=== PATIENT | female | born 1965 | race Caucasian/White ===

== ENCOUNTER → 2019-01-26 | Outpatient (CLI) | payer OTHER ==
[2019-01-26 11:25] VITALS: BP 137/73; PULSE 85; RESP 16; TEMP 97.5; BMI 25.0
--- NOTE | 2019-01-26 11:43 | P.GSHP ---
History of Present Illness H&P Date: 01/26/19 Chief Complaint: abnormal mamogram Patient is a 53 year old white female rey had noted some indentation in her left breast. She noted the indentation approximately a year ago but had some weight change and thought it was related to the weight change. Her last mammogram david or to this was approximately 6 years ago. [place] [id number]. This revealed a high-density spiculated lesion approximately 1.3 cm with central calcification in the inferior left breast approximately 5 cm from the nipple. An ultrasound performed on 12/26/2018 revealed a 0.9 cm hypoechoic nodule that appeared tolerated and wide in the 6 o'clock position. Ultrasound-guided core biopsy was recommended.The patient has not felt the area. No nipple discharge or changes. The patient has had some intermittent fleeting pain in her left breast for years but nothing new that is changed. She denies any pain in her right breast. She does not feel any specific lump or mass but does not examine herself regularly. Family History: maternal grandmother: breast maternal aunt: breast sister: breast 69 maternal grandfather: bladder sister: cervical cancer maternal aunt: ? type Hormonal History: menarche: 11 : 3, 3 chldren first born at 18, breast fed: yes menopause: periods stopped had an ablation about 43, still has hot flashes BCP: 3 years hormones: none Past surgical history: 1. Tubal ligation 2. Bladder suspension Medical History: none Social history: Smoke: One pack per day for 39 years Alcohol: Once or twice a week Drugs: none - Constitutional Comment: weight gain Constitutional: Reports weight gain - EENT Eyes: denies blurred vision, denies pain Ears: right: decreased hearing, deny: tinnitus Ears, nose, mouth and throat: Denies headache, Denies sore throat - Breasts Breasts: bilateral: as per HPI - Cardiovascular Cardiovascular: Reports shortness of breath, Denies chest pain - Respiratory Comment: smoker Respiratory: Denies cough, Denies 7 - Gastrointestinal Gastrointestinal: Denies abdominal pain, Denies diarrhea, Denies nausea, Denies vomiting - Genitourinary (Female) Genitourinary: Denies dysuria, Denies hematuria - Menstruation Menstruation: Reports postmenopausal - Musculoskeletal Musculoskeletal: Denies myalgias - Integumentary Integumentary: Denies pruritus, Denies rash - Neurological Neurological: Denies numbness, Denies weakness - Psychiatric Psychiatric: Denies anxiety, Denies depression - Endocrine Endocrine: Reports weight change - Hematologic/Lymphatic Comment: none - Allergic/Immunologic Allergic/Immunologic: Reports seasonal allergies Past Medical History History of Any Multi-Drug Resistant Organisms: None Reported Smoking Status: Current every day smoker Medications and Allergies Home Medications Medication Instructions Recorded Confirmed Type Cetirizine HCl/Pseudoephedrine 1 each PO DAILY PRN 01/23/19 01/26/19 History [Zyrtec-D Tablet] Allergies Allergy/AdvReac Type Severity Reaction Status Date / Time No Known Allergies Allergy Verified 01/26/19 11:20 Surgical - Exam Vital Signs Temp Pulse Resp BP Pulse Ox 97.5 F L 85 16 137/73 98 01/26/19 11:13 01/26/19 11:13 01/26/19 11:13 01/26/19 11:13 01/26/19 11:13 BMI 25.1 - General well developed, well nourished, no distress - Eyes normal ocular movement - ENT no hearing loss, no congestion - Neck no masses, trachea midline - Respiratory normal respiratory effort, clear to auscultation - Cardiovascular Rhythm: regular Heart Sounds: normal: S1, S2 - Abdomen Abdomen: soft - Integumentary normal turgor - Neurologic no disoriented, no combative - Musculoskeletal normal gait, normal posture - Psychiatric oriented to time, oriented to person, oriented to place, speech is normal, memory intact breast exam: Right breast: Multi-positional exam fibrocystic changes no dominant masses or nodules of concern Right axilla: No adenopathy of concern Left breast: With the arms elevated there is some mild skin indentation in the 6 o'clock position and multiple positional exam does not reveal any dominant masses or nodules of concern Left axilla: No adenopathy of concern bra size 36B ptosis mild Results Mammogram and ultrasound results reviewed Assessment and Plan Assessment: Impression: 1. Abnormal left breast mammogram and ultrasound 2. Skin changes with mild indentation left breast 3. Family history of breast cancer 4. Family history of cancer 5. Smoker Plan: 1. Left breast ultrasound-guided core biopsy 2. Patient is going to try to stop smoking 3. Follow-up after ultrasound-guided core biopsy Cc: Dr. Baird, Dr. Loja
== END ==
LOC: WWCWWP 10:52
PROVIDERS: ATTEND Surgery
DX: Z53.9 Procedure and treatment not carried out, unspecified reason (principal)

== ENCOUNTER → 2019-01-30 | Day surgery (SDC) | payer OTHER ==
[2019-01-30 11:33] VITALS: RESP 16; BMI 25.0
[2019-01-30 13:12] VITALS: BP 124/84; PULSE 78; TEMP 98
--- NOTE | 2019-01-30 16:32 | USB ---
EXAMINATION TYPE: US biopsy breast VAD LT, Postbiopsy MG diagnostic mammo LT wo CAD DATE OF EXAM: 01/30/2019 CLINICAL HISTORY: 53-year-old female R92.8 ABN MAMMO. TECHNIQUE: Ultrasound guided core biopsy of the left breast. COMPARISON: 12/26/2018 and 12/20/2018 FINDINGS: The procedure of ultrasound guided core biopsy was explained to the patient. Benefits, alternatives, and risks were discussed. An informed consent was then obtained. The patient was placed in supine positioning for imaging and for the procedure. The overlying skin was prepped and draped in usual sterile fashion. Lidocaine buffered with bicarbonate was used as anesthetic into the skin and subcutaneous tissue up to area of concern in the 5:00 left breast. Under ultrasound guidance, a 13-gauge vacuum-assisted mammotome biopsy gun was used to obtain 7 core samples. Following this, a coil clip was left in lesion. The patient tolerated the procedure well without any immediate complication. The patient was kept in the radiology department for short stay after the procedure and then discharged home in stable condition. Post procedure mammogram shows coil clip located within the 6:00 mammographic mass. IMPRESSION: Successful, uncomplicated ultrasound guided core biopsy of very suspicious 5:00 left breast mass, full pathology results to follow. Pathology Results: Malignant LEFT BREAST AT 5:00 POSITION, NEEDLE CORE BIOPSIES: Infiltrating moderately differentiated ductal adenocarcinoma involving all seven core fragments. See Surgical Pathology Cancer Case Summary. Recommendation Surgical consult of the left breast. SONY
== END | disposition home or self-care (01) ==
LOC: RADUSWWP 11:13
PROVIDERS: ATTEND Surgery
DX: C50.912 Malignant neoplasm of unspecified site of left female breast (principal)
CPT/HCPCS: 88305; 77065; 19083; A4648; J2001

== ENCOUNTER → 2019-02-03 | Outpatient (CLI) | payer OTHER ==
[2019-02-03 08:49] VITALS: BP 156/83; PULSE 95; RESP 20; TEMP 97.2; BMI 25.0
--- NOTE | 2019-02-03 09:27 | P.PN ---
Subjective Progress Note Date: 02/03/19 Principal diagnosis: left breast invasive ductal carcinoma Stage I A/B left breast cancer T1 N0 M0 (ER/RI [id number]) pending, G2 50 is a 53-year-old white female status post left breast ultrasound-guided core biopsy. This revealed a grade 2 invasive ductal carcinoma. The patient's radiograph was reviewed with radiology the lesion appears to be somewhat central in the breast and would be amiable to lumpectomy. The patient did not have any clinical adenopathy of concern. She has no evidence of metastatic disease. The patient does have a strong family history of cancer including a sister with breast cancer and a maternal grandmother and maternal aunt with breast cancer. She has been recommended to undergo genetic testing. The patient has no complaints related to the biopsy. Family history: Maternal grandmother: Breast cancer Maternal aunt: Breast cancer Sister: Breast cancer 69 Maternal grandfather: Bladder cancer Sister: Cervical cancer Maternal aunt colon cancer uncertain of the type Past surgical history: 1. Tubal ligation 2. Bladder suspension Medical history: Negative Social history: Smoke: One pack per day for 39 years Alcohol: Once or twice a week Drugs: Negative Review of systems: HEENT negative Lungs: Smoker Cardiovascular: Shortness of breath at times GI: Negative : Negative Musculoskeletal: Negative Psychiatric: Negative Objective - Vital Signs Vital signs: Vital Signs Temp 97.2 F L 02/03/19 08:46 Pulse 95 02/03/19 08:46 Resp 20 02/03/19 08:46 BP 156/83 02/03/19 08:46 Pulse Ox 99 02/03/19 08:46 Intake & Output 02/02/19 02/03/19 02/03/19 18:59 06:59 18:59 Weight 72.575 kg - Exam BMI 25.1 - Constitutional General appearance: Present: average body habitus - EENT Eyes: Present: EOMI ENT: Present: hearing grossly normal - Neck Neck: Present: normal ROM - Respiratory Respiratory: bilateral: CTA - Cardiovascular Rhythm: regular Heart sounds: normal: S1, S2 - Integumentary Integumentary Comment(s): Left breast: Core biopsy site mild ecchymosis no hematoma no evidence of any infection - Musculoskeletal Musculoskeletal: Present: gait normal - Psychiatric Psychiatric: Present: A&O x's 3, appropriate affect, intact judgment & insight Assessment and Plan Assessment: Impression: 1. Patient with new diagnosis of left breast cancer 2. Smoker I've had a long discussion with the patient and her family regarding her diagnosis. She has a T1 N0 M0 grade 2 stage 1A/possible IB left breast cancer. Options of lumpectomy plus radiation therapy versus mastectomy plus or minus reconstruction with sentinel node biopsy plus or minus axillary node dissection were discussed in detail. The patient and her family understand. The patient at this time is going to meet with radiation oncology as well as have blood drawn for genetic testing. She will be seen back here in approximately 3 weeks. Plan: 1. Meet with radiation oncology 2. Genetic testing 3. Patient's case to be presented at tumor board 4. Meet with medical oncology 5. Plastic surgery appointment 6. Medical clearance 7. Follow-up here in 3 weeks time if patient has any questions or concerns of the catheter talk with her sooner Cc: Dr. Puma Loja
== END ==
LOC: WWCWWP 08:37
PROVIDERS: ATTEND Surgery
DX: Z53.9 Procedure and treatment not carried out, unspecified reason (principal)

== ENCOUNTER → 2019-03-03 | Outpatient (CLI) | payer OTHER ==
[2019-03-03 15:09] VITALS: BP 145/88; PULSE 85; RESP 16; TEMP 97.7; BMI 25.8
--- NOTE | 2019-03-03 15:48 | P.GSHP ---
History of Present Illness H&P Date: 03/03/19 Chief Complaint: Left breast stage IA breast cancer Christy is a 53-year-old white female who is status [place] [id number]. Pathology revealed an infiltrating moderately differentiated ductal adenocarcinoma. This was a T1N0M0 grade 2 ER positive NC positive HER-2/марина negative she underwent genetic testing which was negative. She was seen by medical oncology and radiation oncology. It was felt that she is ready for surgery at this time. She is going to undergo breast conserving surgery with postoperative radiation to follow. There is not felt to be any reason for preoperative chemotherapy. Family history: Maternal grandmother: Breast cancer Paternal aunt: Breast Sr.: Breast Maternal grandfather: Bladder sister: Cervical cancer Maternal aunt: Cancer uncertain of the type Hormonal history: Menarche: 11 3 para 3 first toe bone at 18, breast fed: Yes Menopaus:Stopped she had an ablation at 43 she still has hot flashes BCP: 3 years Hormones: Negative Surgical history: 1. Tubal ligation 2. Bladder suspension Medical history: Negative Social history: Smoke: One pack per day for 39 years Alcohol: Once or twice a week Drugs: Negative - Constitutional Constitutional: Reports sweats, Denies chills, Denies fever - EENT Eyes: denies blurred vision, denies pain Ears: deny: decreased hearing, tinnitus Ears, nose, mouth and throat: Denies headache, Denies sore throat - Breasts Breasts: bilateral: as per HPI - Cardiovascular Cardiovascular: Denies chest pain, Denies shortness of breath - Respiratory Comment: nicotine dependance Respiratory: Reports cough - Gastrointestinal Gastrointestinal: Denies abdominal pain, Denies diarrhea, Denies nausea, Denies vomiting - Genitourinary (Female) Genitourinary: Denies dysuria, Denies hematuria - Menstruation Menstruation: Reports postmenopausal - Musculoskeletal Musculoskeletal: Denies myalgias - Integumentary Integumentary: Denies pruritus, Denies rash - Neurological Neurological: Denies numbness, Denies weakness - Psychiatric Psychiatric: Denies anxiety, Denies depression - Endocrine Endocrine: Reports fatigue, Denies weight change - Hematologic/Lymphatic Comment: none - Allergic/Immunologic Allergic/Immunologic: Reports seasonal allergies Past Medical History Past Medical History: GERD/Reflux History of Any Multi-Drug Resistant Organisms: None Reported Past Surgical History: Bladder Surgery, Tubal Ligation Past Anesthesia/Blood Transfusion Reactions: No Reported Reaction Past Psychological History: No Psychological Hx Reported Smoking Status: Current every day smoker Past Alcohol Use History: Occasional Past Drug Use History: None Reported Medications and Allergies Home Medications Medication Instructions Recorded Confirmed Type Cetirizine HCl/Pseudoephedrine 1 each PO DAILY PRN 01/23/19 02/03/19 History [Zyrtec-D Tablet] Allergies Allergy/AdvReac Type Severity Reaction Status Date / Time No Known Allergies Allergy Verified 03/03/19 15:02 Surgical - Exam Vital Signs Temp Pulse Resp BP Pulse Ox 97.7 F 85 16 145/88 100 03/03/19 15:03 03/03/19 15:03 03/03/19 15:03 03/03/19 15:03 03/03/19 15:03 BMI 25.8 - General well developed, well nourished, no distress - Eyes normal ocular movement - ENT normal pinna, no hearing loss - Neck no masses, trachea midline - Respiratory normal expansion, normal respiratory effort, clear to auscultation - Cardiovascular Rhythm: regular Heart Sounds: normal: S1, S2 - Abdomen Abdomen: soft, non tender, no guarding, no rigid, no rebound - Integumentary normal turgor - Neurologic no disoriented, no combative - Musculoskeletal normal gait, normal posture - Psychiatric oriented to time, oriented to person, oriented to place, speech is normal, memory intact Breast examination: Right breast: Multi-positional exam no dominant masses or nodules of concern Axilla: No adenopathy of concern Left breast: Multi-positional exam no dominant mass or not his of concern Left axilla: No adenopathy of concern Results Radiographic reports reviewed Assessment and Plan Assessment: Impression: 1. Patient with a stage IA left breast cancer 2. Nicotine dependence 3. Patient has been seen by radiation and medical oncology and this cleared for surgery 4. Genetic testing negative Plan: 1. Left breast needle local excisional lumpectomy, sentinel node injection, sentinel node biopsy possible axillary node dissection Patient had a long discussion regarding surgical options which range from mastectomy plus or minus reconstruction to lumpectomy plus radiation therapy. The patient is also recommended to undergo a sentinel node biopsy plus or minus axillary node dissection. She and her understand risks and benefits and they wish to proceed. This will be scheduled in the near future. CC: Dr. Puma Loja
--- NOTE | 2019-03-14 13:56 | P.NAPBC ---
NAPBC Queries - NAPBC Queries Was patient's case review presented at [facility] tumor board? If no, comment.: Yes Was patient's pathology reviewed at [facility]? If no, comment.: Yes Was breast conservation surgery offered? If no, comment.: Yes Was sentinel node biopsy offered? If no, comment.: Yes Was diagnosis confirmed by percutaneous core biopsy? If no, comment.: Yes Is patient mastectomy patient?: No Clinical Stage: Stage 1A
== END | disposition home or self-care (01) ==
LOC: WWCWWP 14:45
PROVIDERS: ATTEND Surgery
DX: Z53.9 Procedure and treatment not carried out, unspecified reason (principal)

== ENCOUNTER 2019-03-14 11:25 | Day surgery (SDC) | payer OTHER ==
[2019-03-08 12:58] VITALS: BMI 25.8
[~2019-03-14 11:25] MED LIST: DEXAMETHASONE SOD PHOSPHATE 10 MG/ML 1 ML VIAL IV ONE; HEPARIN SODIUM,PORCINE 5,000 UNIT/ML 1 ML VIAL SQ ONE; LACTATED RINGERS 1,000 ML IV SCH; LIDOCAINE 1% 20 ML VIAL (10MG/ML) FOR IV START INTRADERMA PRN; ONDANSETRON 4 MG/2 ML VIAL IVP ONE; Pre Op ABX Message 1 EACH MISC MISCELLANE ONE; SCOPOLAMINE 1.5MG/72HR PATCH TRANSDERM ONE
[2019-03-14] MEDS ORDERED: ALPRAZolam 0.5 MG TAB PO ONE (12:02)
[2019-03-14 12:44] VITALS: RESP 16
[2019-03-14] MEDS ORDERED: LIDOCAINE 1% INJ 10MG/ML (20 ML MDV) SQ ONE ×2 (12:48→13:44)
[2019-03-14] MEDS ORDERED: HEPARIN SODIUM,PORCINE 5,000 UNIT/ML 1 ML VIAL SQ ONE (13:20)
--- NOTE | 2019-03-14 13:21 | NM ---
EXAMINATION TYPE: NM sentinel node injection DATE OF EXAM: 03/14/2019 COMPARISON: 01/30/2019 HISTORY: Left breast cancer with request for sentinel lymph node injection. TECHNIQUE AND FINDINGS: The procedure of sentinel lymph node injection was explained to the patient. The benefits, alternatives, and risks were discussed. An informed consent was then obtained. Overlying skin is cleaned with sterile alcohol. Following this, 528 uCi Tc99m Tilmanocept was inject ed in the upper outer aspect of the left nipple intradermally. The patient tolerated the procedure well without any immediate complication. The patient was kept in the radiology department for short stay after the procedure and then taken to surgery for surgical p rocedure what is presumed intraoperative gamma probe will be used for sentinel lymph node detection. IMPRESSION: Left breast radiotracer injection for sentinel node localization as above.
[2019-03-14] MEDS ORDERED: fentaNYL (PF) 50 MCG/ML 2 ML AMP ONE (13:44)
[2019-03-14] MEDS ORDERED: PROPOFOL 10 MG/ML 20 ML VIAL IV ONE (13:44)
[2019-03-14] MEDS ORDERED: MIDAZOLAM 2 MG/2 ML VIAL ONE (13:44)
[2019-03-14] MEDS ORDERED: SUCCINYLCHOLINE CHLORIDE 100 MG/5 ML SYR IV ONE (13:44)
[2019-03-14] MEDS ORDERED: LIDOCAINE 1% INJ 10MG/ML (20 ML MDV) ONE (13:44)
[2019-03-14] MEDS ORDERED: ceFAZolin 1,000 MG VIAL IVPB ONE (13:58)
--- NOTE | 2019-03-14 15:44 | MM ---
EXAMINATION TYPE: MG pre op needle loc LT, MG surgical specimen LT DATE OF EXAM: 03/14/2019 COMPARISON: 01/30/2019 CLINICAL HISTORY: Infiltrating moderately differentiated ductal adenocarcinoma of the left breast at the 5:00 position for which mammographic guided localization was requested. TECHNIQUE: Needle localization with wire placement and surgical excision of area of concern in the left breast. FINDINGS: The procedure of needle localization with wire placement and than surgical excision was explained to the patient. Benefits, alternatives, and risks were discussed. An informed consent was then obtained. The shortest pathway for procedure was chosen. Shortest pathway was medial to lateral approach. The overlying skin was prepped and draped in usual sterile fashion. 10 cc of lidocaine was used as anesthetic into the skin and subcutaneous tissue up to the level of area of concern. A 7 cm needle was used. It was placed via a medial to lateral approach under mammographic guidance. Subsequent 90 degrees mammogram show the needle to be in satisfactory position relative to the targeted area. At this point, wire was placed and the needle was withdrawn. The wire was fixed to patient's skin. Images were marked for surgeon. The patient tolerated the procedure well without any immediate complication. The patient was kept in the radiology department for short stay after the procedure and then taken to surgery for surgical excision. Targeted mass, coil- shaped biopsy marker and wire are identified in specimen mammogram. The patient was kept in hospital for short stay after the procedure and then discharged home in stable condition. IMPRESSION: Successful, uncomplicated needle localization with wire placement and surgical excision of a biopsy-proven approximately 9 mm invasive ductal carcinoma at the 5:00 position in the left breast, full pathology results to follow. Pathology Results: Malignant A. LEFT BREAST, SENTINEL LYMPH NODE #1, BIOPSY: Negative for metastatic adenocarcinoma by H+E as well as appropriately controlled immunohistochemical studies for cytokeratin 7 and ZEN. B. LEFT AXILLARY CONTENTS, REGIONAL DISSECTION: Two lymph nodes negative for metastatic adenocarcinoma. C. INFERIOR NEW EXTERNAL SURFACE, EXCISION: Benign fibrofatty breast parenchyma, negative for adenocarcinoma. D. SKIN SCAR, EXCISION: Epidermis and dermis with post surgical changes, negative for adenocarcinoma. E. EXTERNAL ANTERIOR SURFACE, EXCISION: Breast parenchyma with focal fibroadenomatoid change, negative for adenocarcinoma. F. LEFT BREAST, WIRE LOCALIZATION BIOPSY: 1.5 x 1.3 x 0.8 cm infiltrating moderately differentiated (Grade 2) adenocarcinoma extending to within 2 mm of the blue/black anterior superior margin of excision (inked margin negative for adenocarcinoma). See Surgical Pathology Cancer Case Summary. Recommendation Surgical consult of the left breast. (continued surgical management) SONY
[2019-03-14] MEDS ORDERED: LACTATED RINGERS 1,000 ML IV ONE (16:05)
--- NOTE | 2019-03-14 16:18 | P.OP ---
Date of Procedure: 03/14/19 Preoperative Diagnosis: Left breast cancer Postoperative Diagnosis: Same Procedure(s) Performed: Left breast lumpectomy via donut mastopexy, oncoplastic tissue rearrangment sentinel node biopsy Anesthesia: RA Surgeon: Areli Alfaro Estimated Blood Loss (ml): 20 Urine output (ml): 700 Pathology: other Condition: stable Disposition: PACU Indications for Procedure: Left breast cancer Operative Findings: Fatty breast tissue Description of Procedure: The patient is a 53-year-old white female diagnosed with a left breast invasive ductal carcinoma. Treatment options were given to the patient including mastectomy versus lumpectomy with sentinel node biopsy possible axillary node dissection. Of concern is the fact that the tumor was centrally located beneath the nipple areolar complex. The patient wishes for an attempted lumpectomy. Following needle localization of the area of concern in the left breast and lymphokine injection in the periareolar region the patient was brought to the operating room. The left breast and axilla were prepped and draped in a sterile fashion. The axilla was approached initially. Using the neoprobe the area of highest radioactivity was addressed. An incision was made over this area and the radioactive lymph node was identified. A 10 second count on the lymph node was 17,838. The background count at 10 seconds was 22. Evaluated no further adenopathy of concern was identified. The bladder was very small and not suspicious and therefore frozen section was not obtained. After assured that hemostasis was attained the axillary incision was closed using a Vicryl suture was sutured in the deep tissues. This was followed by closure with 4-0 Monocryl. Following this the breast was approached. There is felt that the lesion could be approached via a mastopexy incision. This was discussed with the patient preoperatively. A circular marking was drawn around the area, 1 cm outside of this circumferentially second upper skagit was drawn. Incision on both of these markings was made through the epidermis. The tissue was de- epithelialized. The superior and lateral aspect of the incision was opened into the subcutaneous tissue. This was dissected into the subcutaneous tissue to the shaft of the needle. The needle was grasped and brought up into the incision. The tissue of concern was then excised surrounding the needle. After excision there was some concern that the tumor may be close inferiorly and anteriorly, therefore new inferior and anterior margins were obtained. The specimen was painted for orientation. The specimen was sent to x-ray for evaluation, radiograph of the specimen revealed that the area of concern had clearly been removed. The superior and inferior pedicles of tissue were then mobilized using oncoplastic technique. The breast tissue was mobilized in the subcutaneous tissue between the skin and the breast tissue anteriorly and then it was mobilized posteriorly from of the pectoralis muscle. Approximately 30 square cc of tissue was mobilized. This was brought together and secured using Vicryl suture. Prior to this the area of resection was marked with titanium clips. Prior to securing the tissue we assured that hemostasis was attained. Following this the dermal tissues in the circumareolar region were closed using a 5-0 [place] pursestring, wagonwheel suture. This was followed by circumferential closure of 4-0 Monocryl in the subcuticular tissue. Several small interrupted nylon sutures were placed circumstantially. Steri-Strips were placed in the intervening areas. A sterile dressing was applied. The patient tolerated the procedure in stable condition. All instrument and sponge counts were correct at the end of the case.
--- NOTE | 2019-03-14 16:20 | P.DS ---
Providers Attending physician: Areli Alfaro Primary care physician: Puma Loja Plan - Discharge Summary Discharge Rx Participant: Yes New Discharge Prescriptions: No Action Cetirizine HCl/Pseudoephedrine [Zyrtec-D Tablet] 1 each PO DAILY PRN PRN Reason: Allergy Symptoms Discharge Medication List Cetirizine HCl/Pseudoephedrine [Zyrtec-D Tablet] 1 each PO DAILY PRN 01/23/19 [History] Follow up Appointment(s)/Referral(s): Areli Alfaro MD [STAFF PHYSICIAN] - 3 Days Activity/Diet/Wound Care/Special Instructions: diet ats tolerated if not nauseated do not shower until seen by Dr. Pool wear bra at all times do not drive until seen by Dr. Pool Discharge Disposition: HOME SELF-CARE
[2019-03-14 16:27] VITALS: TEMP 97.1
[2019-03-14] MEDS: HYDROmorphone 0.5 MG/0.5 ML SYRINGE IVP PRN ×2 (16:41→16:48)
[2019-03-14 17:25] VITALS: BP 141/70
[2019-03-14 17:41] VITALS: PULSE 89
--- NOTE | 2019-03-16 10:16 | P.PN ---
Progress Note - Text Progress Note Date: 03/16/19 Tete is a 53-year-old white female status post left breast lumpectomy and sentinel node biopsy on 03-14-19. At this time she has no complaints. She comes for evaluation of incision. Pathology is pending. Physical examination: Lungs: Clear Heart: Regular rate and rhythm Incisions clean and dry, area were area is pink and healing well Ecchymosis lower inner quadrant of the breast Impression: 1. Patient status post left breast lumpectomy and sentinel node biopsy doing well postoperative 2. Follow-up with medical oncology 3. Follow-up with radiation oncology 4. Follow-up here in 1 week 5. Pathology is pending I have discussed with the patient if her pathology shows brenna curtis in her breast she may require a mastectomy. We are awaiting pathology results. CC: Dr. Puma Loja
== END 2019-03-14 17:53 | disposition home or self-care (01) ==
LOC: OR 11:25
PROVIDERS: ATTEND Surgery
DX: C50.912 Malignant neoplasm of unspecified site of left female breast (principal); F17.210 Nicotine dependence, cigarettes, uncomplicated; Z79.899 Other long term (current) drug therapy; K21.9 Gastro-esophageal reflux disease without esophagitis; Z80.3 Family history of malignant neoplasm of breast; Z80.49 Family history of malignant neoplasm of other genital organs; Z98.51 Tubal ligation status; Z98.890 Other specified postprocedural states
CPT/HCPCS: 88305; 88342; 88307; 88341; 76098; 19281; 38792; 19301; 38500; A9520; J2250; J1644; J1100; J2405; J0690; J2001; J3010; J0330; J2704; J1170

== ENCOUNTER 2019-03-16 18:26 | Emergency (ER) | payer OTHER ==
--- NOTE | 2019-03-16 20:55 | US ---
EXAMINATION TYPE: US venous doppler duplex LE LT DATE OF EXAM: 03/16/2019 8:26 PM COMPARISON: NONE CLINICAL HISTORY: Pain. Left leg pain. SIDE PERFORMED: Left TECHNIQUE: The lower extremity deep venous system is examined utilizing real time linear array sonog александр with graded compression, doppler sonography and color-flow sonography. VESSELS IMAGED: External Iliac Vein (EIV) Common Femoral Vein Deep Femoral Vein Greater Saphenous Vein * Femoral Vein Popliteal Vein Small Saphenous Vein * Proximal Calf Veins (* superficial vessels) Left Leg: Negative for DVT No evidence of DVT left leg. IMPRESSION: Negative left leg duplex venous sonogram.
--- NOTE | 2019-03-16 21:30 | ED ---
Extremity Problem HPI - General Chief complaint: Extremity Problem,Nontraumatic Stated complaint: leg swelling-post op Time Seen by Provider: 03/16/19 20:50 Source: patient Mode of arrival: ambulatory Limitations: no limitations - History of Present Illness Initial comments: 3-year-old female presenting today for chief complaint of left calf pain. Brianda nt states after appointment today she noticed some slight left calf pain. Patient states she is able to weight-bear and walk she denies any significant swelling. Patient denies any history of DVT or pulmonary embolism but she was concerned about blood clot after a lumpectomy me that she had 2 days prior. Patient has had chest pain source of breath. Patient denies any groin pain abdominal pain or any other complaints. Patient denies any direct injury, patient denies falls. Patient has any fever or chills night sweats. Eating ROS negative. Upon arrival patient appears well no signs of acute distress. Patient ambulatory appearing well. - Related Data Home Medications Medication Instructions Recorded Confirmed Cetirizine HCl/Pseudoephedrine 1 each PO DAILY PRN 01/23/19 03/16/19 [Zyrtec-D Tablet] Allergies Allergy/AdvReac Type Severity Reaction Status Date / Time No Known Allergies Allergy Verified 03/08/19 13:00 Review of Systems ROS Statement: Those systems with pertinent positive or pertinent negative responses have been documented in the HPI. ROS Other: All systems not noted in ROS Statement are negative. Past Medical History Past Medical History: GERD/Reflux History of Any Multi-Drug Resistant Organisms: None Reported Past Surgical History: Bladder Surgery, Tubal Ligation Additional Past Surgical History / Comment(s): lumpectomy Past Anesthesia/Blood Transfusion Reactions: No Reported Reaction Past Psychological History: No Psychological Hx Reported Smoking Status: Current every day smoker Past Alcohol Use History: Occasional Past Drug Use History: None Reported General Exam - General Exam Comments Initial Comments: General: The patient is awake and alert, in no distress, and does not appear acutely ill. Eye: Pupils are equal, round and reactive to light, extra-ocular movements are intact. No nystagmus. There is normal conjunctiva bilaterally. No signs of icterus. Ears, nose, mouth and throat: There are moist mucous membranes and no oral lesions. Neck: The neck is supple, there is no tenderness or JVD. Cardiovascular: There is a regular rate and rhythm. No murmur, rub or gallop is appreciated. Respiratory: Lungs are clear to auscultation, respirations are non-labored, breath sounds are equal. No wheezes, stridor, rales, or rhonchi. Musculoskeletal: Normal ROM, no tenderness. Strength 5/5. Sensation intact. Pulses equal bilaterally 2+. Neurological: A&O x 3. CN II-XII intact, There are no obvious motor or sensory deficits. Coordination appears grossly intact. Speech is normal. Skin: Skin is warm and dry and no rashes or lesions are noted. Patient tender R patient of the left calf mass or cord no varicose veins. +2 dorsalis pedis pulses bilaterally. no clonus or pallor noted. patient has no significant swelling of the right or left lower extremity there are equal comparison bilaterally. Psychiatric: Cooperative, appropriate mood & affect, normal judgment. Limitations: no limitations Course Vital Signs 03/16/19 03/16/19 19:29 21:46 Temperature 97.9 F 98 F Pulse Rate 78 86 Respiratory 20 18 Rate Blood Pressure 127/78 142/66 O2 Sat by Pulse 97 96 Oximetry Medical Decision Making - Medical Decision Making 53-year-old female presenting for rule out of deep venous thrombosis. Patient has mild calf pain she was concerned of blood clot given she had a recent surgical procedure. The swelling on examination. Mild tenderness to palpation of the left calf. Popliteal mass. Patient neurovascular intact No evidence of DVT on ultrasound. Patient is to follow-up with her primary care provider. She can repeat ultrasound one week if symptoms persist. Patient denies any chest pain or shortness of breath. Return parameters were discussed at length the patient who reports understanding. Patient was discharged appearing well. I discussed case with Dr Hanna prior to discharge. Disposition Clinical Impression: Pain of left calf Disposition: HOME SELF-CARE Condition: Good Instructions (If sedation given, give patient instructions): Leg Edema (ED) Additional Instructions: Please use medication as discussed. Please follow-up with family doctor in the next 2 days.. Please return to emergency room if the symptoms increase or worsen or for any other concerns-immediate return for worsening pain, chest pain or shortness of breath. Is patient prescribed a controlled substance at d/c from ED?: No Referrals: Puma Loja DO [Primary Care Provider] - 1-2 days Time of Disposition: 21:30
[2019-03-16 21:47] VITALS: BP 142/66; PULSE 86; RESP 18; TEMP 98
== END 2019-03-16 21:46 | disposition home or self-care (01) ==
LOC: EC 18:26
DX: M79.662 Pain in left lower leg (principal); F17.200 Nicotine dependence, unspecified, uncomplicated
CPT/HCPCS: 99283

== ENCOUNTER → 2019-03-16 | Outpatient (CLI) | payer OTHER ==
[2019-03-16 09:52] VITALS: BP 109/76; PULSE 74; RESP 16; TEMP 97.9; BMI 25.8
== END ==
LOC: WWCWWP 09:38
PROVIDERS: ATTEND Surgery
DX: Z53.9 Procedure and treatment not carried out, unspecified reason (principal)

== ENCOUNTER → 2019-03-23 | Outpatient (CLI) | payer OTHER ==
[2019-03-23 09:45] VITALS: BP 133/90; PULSE 96; RESP 16; TEMP 98.2; BMI 25.2
--- NOTE | 2019-03-23 09:52 | P.PN ---
Progress Note - Text Progress Note Date: 03/23/19 The patient is a 53 year old white female status post left breast lumpectomy on 03-14-19. She has mild left axillary discomfort. Otherwise she has no complaints. She presently uses [id number] ibuprofen for pain control. As no complaints of any fever or chills Physical exam: Lungs: Clear Heart: Regular rate and rhythm Incision: Clean and dry no evidence of any infection in the circumareolar area as well as in the axilla Impression: 1. Patient status post left breast lumpectomy sentinel node biopsy, margins negative, sentinel node negative tumor size 1.5 cm x 1.3 cm, this is a T1 and 0 M0 ER/TX positive HER-2/марина negative. 2 lesion. This is stage 1A. Plan: 1. Follow with radiation oncology 2. Follow with medical oncology 3. Follow here in 4 months CC: Dr. Loja
== END ==
LOC: WWCWWP 09:35
PROVIDERS: ATTEND Surgery
DX: Z53.9 Procedure and treatment not carried out, unspecified reason (principal)

== ENCOUNTER → 2019-08-17 | Outpatient (CLI) | payer OTHER ==
[2019-08-17 10:33] VITALS: BP 113/69; PULSE 88; RESP 18; TEMP 97.6; BMI 25.4
--- NOTE | 2019-08-17 11:02 | P.PN ---
Subjective Progress Note Date: 08/17/19 Principal diagnosis: Stage 1A ([id number]+Her2-) Patient is a 53 year old white female status post lumpectomy on 03-14-19 done via donut mastopexy and oncoplastic tissue rearrangement and SNB. The patient had a low Oncotype score and did not receive chemotherapy. The patient did receive 20 radiation therapy treatments. She has not been recommended to take an aromatase inhibitor however she is uncertain as to whether she is truly postmenopausal. She had an uterine ablation approximately 9 years ago and has not had periods however ovaries are intact and her sister had a late menopause and her sisters older than she is. The patient has no complaints related to her breast. The patient had genetic testing performed and she was BRCA1 negative. The patient is due for left breast mammogram and ultrasound in August. Family history: Maternal grandmother: Breast cancer Paternal aunt: Breast cancer Sister: Breast cancer Paternal grandfather: Bladder cancer Sr.: Cervical cancer Maternal aunt: Cancer uncertain of the type Hormonal history: Menarche: 11 , first born at 17, breast fed: Yes Menopause colon. She had ablation at 43 she still has night sweats and minor hot flashes control pills: 3 years Hormones: Negative Surgical history: 1. Tubal ligation 2. Bladder suspension 3. Uterine ablation Medical history: Negative Social history: Smoke: One pack per day for 39 years Alcohol: Once or twice a week Drugs: Negative Review of systems: Constitutional: Night sweats and occasional hot flashes HEENT: Negative Breasts: As per HPI Cardiovascular: Negative Respiratory: Nicotine dependence GI: Negative : Uterine ablation Musculoskeletal: Negative Integument: Negative Neurologic: Negative Psychiatric: Negative Objective - Vital Signs Vital signs: Vital Signs Temp 97.6 F 08/17/19 10:28 Pulse 88 08/17/19 10:28 Resp 18 08/17/19 10:28 BP 113/69 08/17/19 10:28 Pulse Ox 97 08/17/19 10:28 Intake & Output 08/16/19 08/17/19 08/17/19 18:59 06:59 18:59 Weight 71.668 kg - Exam BMI 25.5 - Constitutional General appearance: Present: average body habitus - EENT Eyes: Present: EOMI ENT: Present: hearing grossly normal - Neck Neck: Present: normal ROM - Respiratory Respiratory: bilateral: CTA - Cardiovascular Rhythm: regular Heart sounds: normal: S1, S2 - Gastrointestinal Gastrointestinal Comment(s): liver and spleen normal size General gastrointestinal: Present: soft - Integumentary Integumentary Comment(s): incision breast clean and dry lower inner quadrant mild dimpling related to surgery and radiation Integumentary: Present: normal turgor - Musculoskeletal Musculoskeletal: Present: gait normal - Psychiatric Psychiatric: Present: A&O x's 3, appropriate affect, intact judgment & insight - Additional findings Additional findings: breast exam: right breast exam: Multi-positional exam no dominant masses or nodules of concern Right axilla: No adenopathy of concern Left breast: Reveals scars from donut mastopexy, some dimpling in the medial lower aspect of the breast related to tissue transfer, no dominant masses or nodules of concern, skin changes related to radiation therapy. Left axilla: No adenopathy of concern Assessment and Plan Assessment: Impression: 1. Patient status post left breast lumpectomy and sentinel node biopsy/radiation therapy for stage I a left breast cancer 2. Fibrocystic breast changes 3. Mild dimpling of the left breast 4. Skin changes related to radiation 5. Patient due for mammogram of the left breast 6. Patient questioning whether she is truly menopausal and whether she should take an aromatase inhibitor or tamoxifen; the reason as the patient still having night sweats and hot flashes and her sister did not go through menopause until the age of 54. The patient cannot tell wishes menopausal or not because she has had a uterine ablation in either. For many years but still has her ovaries intact. Plan: 1. Left breast mammogram 2. I have called her [employer] office and we will be ordering FSH, LH, progesteron e, and estradiol levels 3. Suspect patient will be starting an aromatase inhibitor soon 4. Continue close surveillance no evidence of recurrent cancer at this time I have spent 30 minutes with the patient and > 50% face to face time. We have discussed menopausal status, symptomes the patient is having, possible treatment, and survival care plan. CC: Dr. Loja
== END | disposition home or self-care (01) ==
LOC: WWCWWP 09:58
PROVIDERS: ATTEND Surgery
DX: Z53.9 Procedure and treatment not carried out, unspecified reason (principal)

== ENCOUNTER → 2019-08-17 | Outpatient (CLI) | payer OTHER ==
[2019-08-17 19:10] LABS: Follicle Stimulating Hormone 65.8 mIU/mL; Luteinizing Hormone 32.1 mIU/mL
[2019-08-17 19:12] LABS: Estradiol <11.8 pg/mL
== END | disposition home or self-care (01) ==
LOC: LABWHC1 12:51
PROVIDERS: ATTEND Surgery
DX: N95.1 Menopausal and female climacteric states (principal)
CPT/HCPCS: 36415; 82670; 83001; 83002; 84144

== ENCOUNTER → 2019-08-17 | Outpatient (CLI) | payer OTHER ==
--- NOTE | 2019-08-17 16:29 | BD ---
EXAMINATION TYPE: Axial Bone Density DATE OF EXAM: 08/17/2019 COMPARISON: NONE CLINICAL HISTORY: 53-year-old female postmenopausal screening Height: 5 FT 6 IN Weight: 158 FRAX RISK QUESTIONS: Secondary Osteoporosis: Current Tobacco Use: YES RISK FACTORS HISTORY OF: Family History of Osteoporosis: YES Active: YES Postmenopausal woman: ABLATION AGE 44 MEDICATIONS: Additional Medications: NONE Additional History: BREAST CANCER 2019 RADIATION ONLY EXAM MEASUREMENTS: Bone mineral densitometry was performed using the [employer] System. Bone mineral density as measured about the Lumbar spine is: ----- L1-L4(G/cm2): 1.193 T Score Values are as follows: ----- L2: -0.4 ----- L3: 0.2 ----- L4: 0.2 ----- L1-L4: 0.1 BASELINE Bone mineral density about the R hip (g/cm2): 0.803 Bone mineral density about the L hip (g/cm2): 0.808 T Score values are as follows: -----R Neck: -1.7 -----L Neck: -1.7 -----R Total: -1.2 -----L Total: -1.2 BASELINE IMPRESSION: Osteopenia (T Score between -2.5 and -1). There is slightly increased risk of fracture and the patient may be considered for treatment. Re-Screen 2-5 years. NOTE: T-SCORE=SD OF THE YOUNG ADULT MEAN.
== END | disposition home or self-care (01) ==
LOC: RADBDWWP 09:55
PROVIDERS: ATTEND Internal Medicine Hematology & Oncology
DX: M85.80 Other specified disorders of bone density and structure, unspecified site (principal); Z79.890 Hormone replacement therapy; C50.512 Malignant neoplasm of lower-outer quadrant of left female breast
CPT/HCPCS: 77080

== ENCOUNTER → 2019-10-26 | Outpatient (CLI) | payer OTHER ==
--- NOTE | 2019-10-26 11:38 | MM ---
Reason for exam: follow-up at short interval from prior study. Last mammogram was performed 9 months ago. History: Patient is postmenopausal and has history of breast cancer at age 53. Family history of breast cancer in sister at age 69, breast cancer in maternal grandmother, and breast cancer in maternal aunt at age 60. Malignant MG pre op needle loc LT of the left breast, March 14, 2019. Lumpectomy of the left breast, March 14, 2019. Malignant US biopsy breast VAD LT of the left breast, January 30, 2019. Taking antineoplastic beginning at age 53. Physical Findings: Nurse did not find any significant physical abnormalities on exam. MG Diagnostic Mammo LT w CAD CC and MLO view(s) were taken of the left breast. Prior study comparison: January 30, 2019, left breast MG diagnostic mammo LT wo CAD. The breast tissue is heterogeneously dense. This may lower the sensitivity of mammography. No suspicious abnormality. Post therapy change on the left however ultrasound of the same day demonstrates suspicious finding. These results were verbally communicated with the patient and result sheet given to the patient on 10/26/19. ASSESSMENT: Suspicious, BI-RAD 4 RECOMMENDATION: Ultrasound core biopsy of the left breast. Called office with mammographic findings and has scheduled an appointment for the patient for 11/17/19 at 11:[address] Alfaro. Biopsy scheduled for 11/09/19 at 12:20. PRELIMINARY REPORT CALLED AND FAXED TO DR. ALFARO ON 10/26/19.
--- NOTE | 2019-10-26 11:41 | USB ---
Reason for exam: follow-up at short interval from prior study. History: Patient is postmenopausal and has history of breast cancer at age 53. Family history of breast cancer in sister at age 69, breast cancer in maternal grandmother, and breast cancer in maternal aunt at age 60. Malignant MG pre op needle loc LT of the left breast, March 14, 2019. Lumpectomy of the left breast, March 14, 2019. Malignant US biopsy breast VAD LT of the left breast, January 30, 2019. Taking antineoplastic beginning at age 53. US Breast LT Left complete breast ultrasound includes all four quadrants, the retroareolar region and axilla. Finding demonstrates a 1.9 x 2.1 x 0.9cm irregular, hypoechoic lesion at 5-6 o'clock lumpectomy site, a 0.9 x 1.2 x 0.6cm duct ectasia at 8 o'clock, a 0.5 x 1.3 x 1.4cm duct ectasia at 9 o'clock, a 1.2 x 1.4 x 1.5cm irregular, hypoechoic, shadowing, suspicious lesion at the posterior nipple for which a biopsy is recommended and a 1.0 x 0.9 x 1.4cm axilla node, normal in size. These results were verbally communicated with the patient and result sheet given to the patient on 10/26/19. ASSESSMENT: Suspicious, BI-RAD 4 RECOMMENDATION: Ultrasound core biopsy of the left breast. (left retroareolar) Called office with mammographic findings and has scheduled an appointment for the patient for 11/17/19 at 11:[address] Alfaro. Biopsy scheduled for 11/09/19 at 12:20. PRELIMINARY REPORT CALLED AND FAXED TO DR. ALFARO ON 10/26/19.
== END | disposition home or self-care (01) ==
LOC: RADMAMWWP 08:12
PROVIDERS: ATTEND Surgery
DX: Z08 Encounter for follow-up examination after completed treatment for malignant neoplasm (principal); Z85.3 Personal history of malignant neoplasm of breast
CPT/HCPCS: 77065

== ENCOUNTER → 2019-11-09 | Day surgery (SDC) | payer OTHER ==
[2019-11-09 11:56] VITALS: BP 138/91; PULSE 108; TEMP 98.2
--- NOTE | 2019-11-09 14:06 | USB ---
Discontinued left breast biopsy HISTORY: Breast carcinoma Real-time ultrasound scanning performed of the left breast. Correlation to left breast ultrasound 10/26, diagnostic mammogram 10/26/2019 Following discussion of risks and benefits of the procedure, patient has elected to defer biopsy at t his time. IMPRESSION: Discontinued biopsy, recommend follow-up mammogram in 6 months back on schedule.
== END ==
LOC: RADUSWWP 11:24
PROVIDERS: ATTEND Surgery
DX: R92.8 Other abnormal and inconclusive findings on diagnostic imaging of breast (principal); Z53.9 Procedure and treatment not carried out, unspecified reason

== ENCOUNTER → 2019-11-17 | Outpatient (CLI) | payer OTHER ==
[2019-11-17 11:28] VITALS: BP 121/81; PULSE 85; RESP 18; TEMP 97.7
--- NOTE | 2019-11-17 12:04 | P.PN ---
Subjective Progress Note Date: 11/17/19 Principal diagnosis: stage 1A left breast cancer surgery February 2019 Patient is a 53 year old white female status post left breast lumpectomy on 03-14-19 done via donut mastopexy and oncoplastic tissue rearrangement and SNB. The patient had a low Oncotype score and did not receive chemotherapy. The patient did receive 20 radiation therapy treatments. She has not been recommended to take an aromatase inhibitor however she is uncertain as to whether she is truly postmenopausal. She had an uterine ablation approximately 9 years ago and has not had periods however ovaries are intact and her sister had a late menopause and her sisters older than she is. The patient has no complaints related to her breast. The patient had genetic testing performed and she was BRCA1 negative. The patient had a left breast mammogram performed on 1919. This showed posttherapy changes on the left and an ultrasound was done the same day. The ultrasound revealed a 1.2 x 1.5 cm irregular area in the posterior aspect of the nipple for which biopsy was recommended and a 1 x 1.4 cm axillary node which was felt to be normal. This was felt to be suspicious for the lesion at 9:00 in an ultrasound core biopsy was recommended of the area in stefan retro aerolar region. The patient was scheduled and came in for the core biopsy on but became anxious and opted to defer the biopsy. This has been reviewed with radiology and recommended not waiting but proceeding with a biopsy. She is agreeing to biopsy at this time. Family history: Maternal grandmother: Breast cancer Paternal aunt: Breast cancer Sister: Breast cancer Paternal grandfather: Bladder cancer Sr.: Cervical cancer Maternal aunt: Cancer uncertain of the type Hormonal history: Menarche: 11 , first born at 17, breast fed: Yes Menopause colon. She had ablation at 43 she still has night sweats and minor hot flashes control pills: 3 years Hormones: Negative Surgical history: 1. Tubal ligation 2. Bladder suspension 3. Uterine ablation Medical history: Negative Social history: Smoke: One pack per day for 39 years Alcohol: Once or twice a week Drugs: Negative Review of systems: Constitutional: Night sweats and occasional hot flashes HEENT: Negative Breasts: As per HPI Cardiovascular: Negative Respiratory: Nicotine dependence GI: Negative : Uterine ablation Musculoskeletal: Negative Integument: Negative Neurologic: Negative Psychiatric: Negative Objective - Vital Signs Vital signs: Vital Signs Temp 97.7 F 11/17/19 11:25 Pulse 85 11/17/19 11:25 Resp 18 11/17/19 11:25 BP 121/81 11/17/19 11:25 Pulse Ox 98 11/17/19 11:25 Intake & Output 11/16/19 11/17/19 11/17/19 18:59 06:59 18:59 Weight 70.76 kg - Exam BMI 25.2 - Constitutional General appearance: Present: average body habitus - EENT Eyes: Present: EOMI ENT: Present: hearing grossly normal - Neck Details: no adenopathy of concern Neck: Present: normal ROM - Respiratory Respiratory: bilateral: CTA - Cardiovascular Rhythm: regular Heart sounds: normal: S1, S2 - Gastrointestinal General gastrointestinal: Present: normal bowel sounds, soft - Integumentary Integumentary Comment(s): scar left breast well healed Integumentary: Present: normal turgor - Musculoskeletal Musculoskeletal: Present: gait normal - Psychiatric Psychiatric: Present: A&O x's 3, appropriate affect, intact judgment & insight - Additional findings Additional findings: breast exam: BRA 36C ptosis grade 2 inspection: Left breast well-healed scar from prior surgery, some in duration in the medial aspect of the breast, postop and radiation skin changes, almost as site of the prior lumpectomy believed to be related to scar tissue and no other dominant masses or nodules of concern, fibrocystic breast changes Left axilla: No adenopathy of concern Right breast: Multiple positional exam from cystic changes, no dominant masses or nodules of concern Right axilla: No adenopathy of concern Assessment and Plan Assessment: Impression: 1. Patient status post left breast lumpectomy and sentinel node biopsy radiation therapy patient presently is on Arimidex she did not have any chemotherapy 2. Recent left breast ultrasound area of concern in the retroareolar region core biopsy recommended 3. Fibrocystic breast changes Plan: 1. Ultrasound core biopsy area of concern in the left breast 2. Continue her Revlimid X 3. Follow-up after ultrasound-guided core biopsy Risks and benefits of ultrasound core biopsy were discussed with the patient. Her films were reviewed with Dr. Andres from radiology. Dr. Laguna actually came and talked to the patient to explain the reason for biopsy as well. The patient understands and wishes to proceed. Risks include but are not limited to bleeding infection reaction to the anesthetic. She understands of the area were to be discordant that open biopsy could be recommended. CC: Dr. Loja encounter 25 minutes, > 50% spent in planning and counselling Time with Patient: Less than 30
== END | disposition home or self-care (01) ==
LOC: WWCWWP 11:14
PROVIDERS: ATTEND Surgery
DX: Z53.9 Procedure and treatment not carried out, unspecified reason (principal)

== ENCOUNTER → 2019-12-18 | Day surgery (SDC) | payer OTHER ==
[2019-12-18 11:31] VITALS: RESP 12
[2019-12-18 12:42] VITALS: BP 130/76; PULSE 67; TEMP 97.6
--- NOTE | 2019-12-18 15:00 | USB ---
EXAMINATION TYPE: US biopsy breast VAD LT, US discontinued breast bx LT DATE OF EXAM: 12/18/2019 CLINICAL HISTORY: Z85.3, Personal history of breast cancer. TECHNIQUE: Ultrasound guided core biopsy of left breast. COMPARISON: Examinations dating back to 01/30/2019 FINDINGS: After discussion with the radiation oncologist Dr. Foster regarding the imaging findings o f 10/26/2019 and was questioned whether the findings represented scar posterior to the nipple and postr adiation/edema change of the left breast. The patient was however scheduled for biopsy on 11/09/2022 p ost nipple area that measured up to 1.2 x 1.5 cm given the shadowing nature of the irregular mass. Th e patient opted to discontinue the left breast biopsy on 11/09/2019 and was rescheduled for 12/18/2019. On imaging today of 12/18/2019 the focal area of shadowing hypoechogenicity posterior to the nipple del toor s appear smaller measuring approximately 6 mm and avascular, likely scar. More rounded area posterior to the nipple previously measured 1.4 cm and now measures 1.1 cm. Therefore findings likely represen t evolving avascular scarring and edema. Precautionary follow-up ultrasound is recommended of the lef t breast 6 months from the initial ultrasound of 10/26/2019. Therefore the patient will be due in April 2020. IMPRESSION: BI-RADS 3-probably benign. Patient will be due for left breast ultrasound in April 2020.
== END ==
LOC: RADUSWWP 11:13
PROVIDERS: ATTEND Surgery
DX: R92.8 Other abnormal and inconclusive findings on diagnostic imaging of breast (principal); Z85.3 Personal history of malignant neoplasm of breast

== ENCOUNTER → 2020-04-29 | Outpatient (CLI) | payer OTHER ==
--- NOTE | 2020-04-30 07:44 | MM ---
Reason for exam: additional evaluation requested from prior study. Last mammogram was performed 6 months ago. History: Patient is postmenopausal and has history of breast cancer at age 53. Family history of breast cancer in sister at age 69, breast cancer in maternal grandmother, and breast cancer in maternal aunt at age 60. US discontinued breast bx LT of the left breast, December 18, 2019. US discontinued breast core LT of the left breast, November 09, 2019. Malignant MG pre op needle loc LT of the left breast, March 14, 2019. Lumpectomy of the left breast, March 14, 2019. Malignant US biopsy breast VAD LT of the left breast, January 30, 2019. Taking antineoplastic beginning at age 53. Physical Findings: Nurse did not find any significant physical abnormalities on exam. MG Diagnostic Mammo w CAD KLEBER Bilateral CC and MLO view(s) were taken. Prior study comparison: October 26, 2019, left breast MG diagnostic mammo LT w CAD. January 30, 2019, left breast MG diagnostic mammo LT wo CAD. The breast tissue is heterogeneously dense. This may lower the sensitivity of mammography. No suspicious calcifications are seen. Post operative distortion left breast. These results were verbally communicated with the patient and result sheet given to the patient on 04/29/20. ASSESSMENT: Incomplete: need additional imaging evaluation, BI-RAD 0 RECOMMENDATION: Ultrasound of the left breast. Manage patient on a clinical basis.
--- NOTE | 2020-04-30 07:45 | USB ---
Reason for exam: follow-up at short interval from prior study. History: Patient is postmenopausal and has history of breast cancer at age 53. Family history of breast cancer in sister at age 69, breast cancer in maternal grandmother, and breast cancer in maternal aunt at age 60. US discontinued breast bx LT of the left breast, December 18, 2019. US discontinued breast core LT of the left breast, November 09, 2019. Malignant MG pre op needle loc LT of the left breast, March 14, 2019. Lumpectomy of the left breast, March 14, 2019. Malignant US biopsy breast VAD LT of the left breast, January 30, 2019. Taking antineoplastic beginning at age 53. US Breast LT Left complete breast ultrasound includes all four quadrants, the retroareolar region and axilla. Finding demonstrates a 4 x 2 x 4mm cystic lesion at 7 o'clock scar. These results were verbally communicated with the patient and result sheet given to the patient on 04/29/20. ASSESSMENT: Probably benign, BI-RAD 3 RECOMMENDATION: Ultrasound of the left breast in 6 months. Manage patient on a clinical basis.
== END | disposition home or self-care (01) ==
LOC: RADMAMWWP 13:30
PROVIDERS: ATTEND Surgery
DX: Z09 Encounter for follow-up examination after completed treatment for conditions other than malignant neoplasm (principal); Z85.3 Personal history of malignant neoplasm of breast; R92.8 Other abnormal and inconclusive findings on diagnostic imaging of breast
CPT/HCPCS: 77066

== ENCOUNTER → 2020-07-15 | Outpatient (CLI) | payer OTHER ==
--- NOTE | 2020-07-15 12:52 | XR ---
EXAMINATION TYPE: XR Hip Complete RT DATE OF EXAM: 07/15/2020 CLINICAL HISTORY: Back pain radiating into right hip. TECHNIQUE: AP and frogleg views of the right hip are obtained. COMPARISON: None. FINDINGS: There is no acute fracture/dislocation evident in the right hip. Mild axial joint space lo ss and acetabular spurring. The overlying soft tissue appears unremarkable. IMPRESSION: As above.
--- NOTE | 2020-07-15 12:54 | XR ---
EXAMINATION TYPE: XR lumbar spine 2 or 3V DATE OF EXAM: 07/15/2020 CLINICAL HISTORY: Low back pain into right hip. TECHNIQUE: Frontal and lateral images of the lumbar spine are obtained. COMPARISON: None. FINDINGS: There are 4 lumbar type vertebral bodies identified. There is partially sacralized left L5 segment. The lumbar spine shows satisfactory alignment without evidence of acute fracture or disloc ation. Vertebral body heights are within normal limits. Mild multilevel anterior and lateral spurring with mild multilevel disc space narrowing, relative sparing of L4-L5 level. Overlying bra strap part ially imaged. Facet arthropathy lower lumbar levels greatest at lumbosacral junction. IMPRESSION: As above.
== END | disposition home or self-care (01) ==
LOC: RADXRMAIN 12:18
PROVIDERS: ATTEND Nurse Practitioner Family
DX: M99.73 Connective tissue and disc stenosis of intervertebral foramina of lumbar region (principal); M47.816 Spondylosis without myelopathy or radiculopathy, lumbar region; M47.817 Spondylosis without myelopathy or radiculopathy, lumbosacral region; Q76.49 Other congenital malformations of spine, not associated with scoliosis; M76.891 Other specified enthesopathies of right lower limb, excluding foot
CPT/HCPCS: 72100; 73502

== ENCOUNTER → 2020-09-06 | Outpatient (CLI) | payer OTHER ==
[2020-09-06 10:45] VITALS: BP 113/67; PULSE 104; RESP 18; TEMP 98.2
--- NOTE | 2020-09-06 11:23 | P.PN ---
Subjective Progress Note Date: 09/06/20 Principal diagnosis: stage IA left breast cancer surveillance Stage 1A ([id number]/[place]+Her2-) Patient is a 54 year old white female status post left breast lumpectomy on 03-14-19 done via donut mastopexy and oncoplastic tissue rearrangement and SNB. The patient had a low Oncotype score and did not receive chemotherapy. The patient did receive 20 radiation therapy treatments. She is taking exemestane. She had an uterine ablation approximately 10 years ago and has not had periods however ovaries are intact and her sister had a late menopause. She complains of cramping in her left breast/lateral chest wall which is now occurring daily. Last for several minutes. It spreads to return nipple. There is nothing that she knows to make it go away. There was also spontaneously. She is not sure of what causes it to happen. In the past she would have occasional pain in her breast. She states every 2 months she has some sharp pain in the left breast. She has no swelling in her arm. She has no shooting pain down her left arm. She is not complaining of any new lumps masses or nodules in the breast or any new skin changes. The patient had genetic testing performed and she was BRCA1 negative. She underwent a bilateral diagnostic mammogram [place] [id number]. It was recommended that an ultrasound of the left breast be performed. No lesions of concern were identified in the right breast. The left breast ultrasound was performed on the same day. There was a 4 x 4 millimeter cystic lesion at 7:00/scar. This was felt to be probably benign repeat ultrasound of the left breast in 6 months was recommended. This is scheduled for October 31, 2020. She had had a prior left breast mammogram and ultrasound in October 2019. Following these studies there is a questionable finding on the ultrasound and attempted ultrasound-guided core biopsy was undertaken in December. The area of concern at that time appeared to be smaller and avascular and felt to represent scar. The procedure was therefore canceled. Again as stated the repeat ultrasound [place] [id number] is felt to be probably benign BIRADS 3 and repeat mammogram in 6 months time is recommended. Family history: Maternal grandmother: Breast cancer Paternal aunt: Breast cancer Sister: Breast cancer Paternal grandfather: Bladder cancer sister: Cervical cancer Maternal aunt: Cancer uncertain of the type Hormonal history: Menarche: 11 , first born at 17, breast fed: Yes Menopause colon. She had ablation at 43 she still has night sweats and minor hot flashes control pills: 3 years Hormones: Negative Surgical history: 1. Tubal ligation 2. Bladder suspension 3. Uterine ablation 4. left bresat lumpectomy and SNB Medical history: Negative Social history: Smoke: One pack per day for 39 years, now down to 5 cigarettes/day Alcohol: Once a week Drugs: Negative Review of systems: Constitutional: Night sweats and occasional hot flashes HEENT: Negative Breasts: As per HPI Cardiovascular: Negative Respiratory: Nicotine dependence; cough GI: Negative : Uterine ablation Musculoskeletal: Negative Integument: Negative Endocrine: Weight gain of 10 pounds during shut down Neurologic: Negative Psychiatric: Negative Objective - Exam BMI 25.8 - Constitutional General appearance: Present: average body habitus - EENT Eyes: Present: EOMI ENT: Present: hearing grossly normal - Neck Neck: Present: normal ROM - Respiratory Respiratory: bilateral: CTA - Cardiovascular Rhythm: regular Heart sounds: normal: S1, S2 - Gastrointestinal General gastrointestinal: Present: soft - Integumentary Integumentary: Present: normal turgor - Musculoskeletal Musculoskeletal: Present: gait normal - Psychiatric Psychiatric: Present: A&O x's 3, appropriate affect - Additional findings Additional findings: Breast Exam: BRA: 36C inspection: Postoperative changes left breast at lumpectomy site scar, proptosis, right breast grade 2 ptosis Palpation: Right breast: Multiple positional exam fibrocystic changes, no dominant masses or nodules of concern Right axilla: No adenopathy of concern Left breast: Distortion secondary to lumpectomy and radiation no dominant masses or nodules of concern, tenderness to palpation of breast tissue more so than muscle no dominant masses or nodules of concern She has full mobility of both shoulders Left axilla: No adenopathy of concern Right wrist: 16.5 cm left wrist: 16.5 cm forearm right: 22 forearm left: 22 uper arm right: 28 upper arm left: 29 Assessment and Plan Assessment: Impression: 1. no evidence of recurrent cancer 2. Patient continues on exemestane 3. Left breast tenderness 4. no lymphedema noted clinically 5. fullrange of motion both shoulders Plan: 1. Bilateral mammogram October 2020 2. Follow-up after bilateral mammogram 3. Patient is going to use ibuprofen for the discomfort in her left breast 4. We have discussed stopping the exemestane for a trial to see if this is muscle discomfort, have discuss with DR. Diaz 5. The patient has questioned whether a bilateral mastectomy would be possible and we will discuss this further in October CC: Dr. Loja encounter 25 minutes > 50% of time in planning and counselling
== END | disposition home or self-care (01) ==
LOC: WWCWWP 10:29
PROVIDERS: ATTEND Surgery
DX: Z53.9 Procedure and treatment not carried out, unspecified reason (principal)

== ENCOUNTER → 2020-10-31 | Outpatient (CLI) | payer OTHER ==
--- NOTE | 2020-10-31 11:27 | MM ---
Reason for exam: clinical finding. Last mammogram was performed 6 months ago. History: Patient is postmenopausal and has history of breast cancer at age 53. Family history of breast cancer in sister at age 69, breast cancer in maternal grandmother, and breast cancer in maternal aunt at age 60. US discontinued breast bx LT of the left breast, December 18, 2019. US discontinued breast core LT of the left breast, November 09, 2019. Malignant MG pre op needle loc LT of the left breast, March 14, 2019. Lumpectomy of the left breast, March 14, 2019. Malignant US biopsy breast VAD LT of the left breast, January 30, 2019. Taking antineoplastic for 1 year beginning at age 53. Physical Findings: Nurse did not find any significant physical abnormalities on exam. MG Diagnostic Mammo w CAD KLEBER Bilateral CC and MLO view(s) were taken. Prior study comparison: April 29, 2020, bilateral MG diagnostic mammo w CAD KLEBER. October 26, 2019, left breast MG diagnostic mammo LT w CAD. There are scattered fibroglandular densities. Finding #1: Architectural distortion in the lower inner quadrant of the left breast consistent with known lumpectomy changes. Finding #2: There are typically benign round calcifications in both breasts. There is no discrete abnormality. These results were verbally communicated with the patient and result sheet given to the patient on 10/31/20. ASSESSMENT: Benign, BI-RAD 2 RECOMMENDATION: Follow-up diagnostic mammogram of both breasts in 1 year.
== END | disposition home or self-care (01) ==
LOC: RADMAMWWP 09:34
PROVIDERS: ATTEND Internal Medicine Hematology & Oncology
DX: R92.8 Other abnormal and inconclusive findings on diagnostic imaging of breast (principal); Z85.3 Personal history of malignant neoplasm of breast
CPT/HCPCS: 77066

== ENCOUNTER → 2020-10-31 | Outpatient (CLI) | payer OTHER ==
--- NOTE | 2020-10-31 11:30 | USB ---
Reason for exam: clinical finding. History: Patient is postmenopausal and has history of breast cancer at age 53. Family history of breast cancer in sister at age 69, breast cancer in maternal grandmother, and breast cancer in maternal aunt at age 60. US discontinued breast bx LT of the left breast, December 18, 2019. US discontinued breast core LT of the left breast, November 09, 2019. Malignant MG pre op needle loc LT of the left breast, March 14, 2019. Lumpectomy of the left breast, March 14, 2019. Malignant US biopsy breast VAD LT of the left breast, January 30, 2019. Taking antineoplastic for 1 year beginning at age 53. US Breast Limited LT Technologist: Yashira Williamson Left limited breast ultrasound including focal area of concern, retroareolar and axilla demonstrates a 0.5 x 0.3 x 0.4cm round, stable lesion at 7 o'clock and scar tissue left breast 6 o'clock similar to prior, questionable vascularity, positive margins on 03/14/19 excision. These results were verbally communicated with the patient and result sheet given to the patient on 10/31/20. ASSESSMENT: Suspicious, BI-RAD 4 RECOMMENDATION: Ultrasound core biopsy of the left breast. Called office with mammographic findings and has scheduled an appointment for the patient for 11/15/20 at 8:[address] Alfaro. Biopsy scheduled for 11/07/20 at 12:00. PRELIMINARY REPORT CALLED AND FAXED TO DR. AFLARO ON 10/31/20.
== END | disposition home or self-care (01) ==
LOC: RADUSWWP 09:37
PROVIDERS: ATTEND Surgery
DX: Z08 Encounter for follow-up examination after completed treatment for malignant neoplasm (principal); Z85.3 Personal history of malignant neoplasm of breast

== ENCOUNTER → 2020-11-07 | Day surgery (SDC) | payer OTHER ==
[2020-11-07 12:21] VITALS: RESP 16
[2020-11-07 13:39] VITALS: BP 121/86; PULSE 76; TEMP 98.4
--- NOTE | 2020-11-07 17:41 | USB ---
EXAMINATION TYPE: US biopsy breast VAD LT DATE OF EXAM: 11/07/2020 CLINICAL HISTORY: R92.8 ABN MAMMO,Z85.3 HX OF BREAST CA. TECHNIQUE: Ultrasound guided vaccuum assisted core biopsy of left breast. COMPARISON: 10/31/2020 ultrasound FINDINGS: The ultrasound guided core biopsy procedure was explained to the patient. The risks, benefits, alternatives were discussed. An informed consent was then obtained. Timeout was performed. The patient was placed in supine positioning for imaging and for the procedure. The overlying skin was prepped with betadine and sterilely draped in usual sterile fashion. Lidocaine 1% was used as anesthetic into the skin and deeper breast tissue up to area of concern in the breast. A small skin trell was made with surgical scalpel. Under ultrasound guidance, a 12-gauge vacuum assisted biopsy device was used to obtain 5 core samples. A biopsy clip was left in lesion. A coil clip was placed. Good hemostasis was obtained with direct pressure. Discharge instructions were discussed with the patient. The patient will follow up with the referring physician for results. Postprocedure mammogram: The patient was transferred to mammography for physician ordered post procedure mammogram for clip placement verification. The clip is in the expected region of the biopsy. Clip is only identified on the medial lateral view. The patient tolerated the procedure well without any immediate complication. The patient was discharged to home in stable condition. IMPRESSION: 1. Successful ultrasound guided biopsy left breast. Pathology Results: Benign LEFT BREAST, 6:00 POSITION, CORE BIOPSY: Benign breast parenchyma with hypocellular collagenous fibrosis and focal histiocytic inflammation (see note). Focal microcalcification present. Recommendation Follow up ultrasound of the left breast in 6 months. SONY
--- NOTE | 2020-11-08 09:15 | MM ---
Reason for exam: additional evaluation requested from abnormal screening. Last mammogram was performed less than 1 month ago. History: Patient is postmenopausal and has history of breast cancer at age 53. Family history of breast cancer in sister at age 69, breast cancer in maternal grandmother, and breast cancer in maternal aunt at age 60. US discontinued breast bx LT of the left breast, December 18, 2019. US discontinued breast core LT of the left breast, November 09, 2019. Malignant MG pre op needle loc LT of the left breast, March 14, 2019. Lumpectomy of the left breast, March 14, 2019. Malignant US biopsy breast VAD LT of the left breast, January 30, 2019. Taking antineoplastic for 1 year beginning at age 53. MG Diagnostic Mammo LT Wo CAD CC, ML, LM, and XCCL view(s) were taken of the left breast. Prior study comparison: October 31, 2020, bilateral MG diagnostic mammo w CAD KLEBER. April 29, 2020, bilateral MG diagnostic mammo w CAD KLEBER. ASSESSMENT: Post procedure mammogram for marker placement RECOMMENDATION: Ultrasound of the left breast in 6 months. PENDING PATHOLOGY RESULTS.
== END ==
LOC: RADUSWWP 11:53
PROVIDERS: ATTEND Surgery
DX: N60.32 Fibrosclerosis of left breast (principal); N61.0 Mastitis without abscess; Z85.3 Personal history of malignant neoplasm of breast; Z80.3 Family history of malignant neoplasm of breast; Z78.0 Asymptomatic menopausal state
CPT/HCPCS: 88305; 77065; 19083; A4648; J2001

== ENCOUNTER → 2020-11-15 | Outpatient (CLI) | payer OTHER ==
[2020-11-15 08:52] VITALS: BP 134/80; PULSE 96; RESP 18; TEMP 97.7
--- NOTE | 2020-11-15 09:27 | P.PN ---
Subjective Progress Note Date: 11/15/20 Principal diagnosis: stage IA left breast cancer stage IA left breast cancer surveillance Stage 1A ([id number]/[place]+Her2-) Patient is a 54 year old white female status post left breast lumpectomy on 03-14-19 done via donut mastopexy and oncoplastic tissue rearrangement and SNB. The patient had a low Oncotype score and did not receive chemotherapy. The patient did receive 20 radiation therapy treatments. She is taking exemestane. She had an uterine ablation approximately 10 years ago and has not had periods however ovaries are intact and her sister had a late menopause. She complains of cramping in her left breast/lateral chest wall which is now occurring daily. Last for several minutes. It spreads to return nipple. There is nothing that she knows to make it go away. There was also spontaneously. She is not sure of what causes it to happen. In the past she would have occasional pain in her breast. She states every 2 months she has some sharp pain in the left breast. She has no swelling in her arm. She has no shooting pain down her left arm. She is not complaining of any new lumps masses or nodules in the breast or any new skin changes. The patient had genetic testing performed and she was BRCA1 negative. She underwent a bilateral diagnostic mammogram [place] [id number]. It was recommended that an ultrasound of the left breast be performed. No lesions of concern were identified in the right breast. The left breast ultrasound was performed on the same day. There was a 4 x 4 millimeter cystic lesion at 7:00/scar. This was felt to be probably benign repeat ultrasound of the left breast in 6 months was recommended. This is scheduled for October 31, 2020. She had had a prior left breast mammogram and ultrasound in October 2019. Following these studies there is a questionable finding on the ultrasound and attempted ultrasound-guided core biopsy was undertaken in December. The area of concern at that time appeared to be smaller and avascular and felt to represent scar. The procedure was therefore canceled. Again as stated the repeat ultrasound [place] [id number] is felt to be probably benign BIRADS 3 and repeat mammogram in 6 months time is recommended. Her most recent bilateral mammogram was on . This revealed architectural distortion in the lower inner quadrant of the left breast consistent with no lumpectomy changes and some typical benign round calcifications in both breasts with no discrete abnormality. This was felt to be benign BIRADS 2 and follow-up mammogram of both breasts in 1 year was recommended. The patient on 10-31-20 had a left breast ultrasound done which was felt to be suspecious BIRAD 4 and a core biopsy was done. She had a core biopsy which revealed benign breast parenchyma with hypocellular collagenous fibrosis and focal histiocytic inflammation. Her lumpectomy and sentinel node biopsy was performed on [id number]. At that time she was noted to have a 1.5 cm infiltrating ductal carcinoma all margins were negative the anterior superior margin was 2 mm away from the infiltrating adenocarcinoma. DCIS was focally present. The patient had a sentinel node removed as well as 2 additional nodes all negative for metastatic disease. She completed radiation therapy. She did not have any chemotherapy. She was taking exemestane but stopped this secondary to muscle pain, she is following this with medical onclolgy. Family history: Maternal grandmother: Breast cancer Paternal aunt: Breast cancer Sister: Breast cancer Paternal grandfather: Bladder cancer sister: Cervical cancer Maternal aunt: Cancer uncertain of the type Hormonal history: Menarche: 11 , first born at 17, breast fed: Yes Menopause colon. She had ablation at 43 she still has night sweats and minor hot flashes control pills: 3 years Hormones: Negative Surgical history: 1. Tubal ligation 2. Bladder suspension 3. Uterine ablation 4. left bresat lumpectomy and SNB Medical history: Negative Social history: Smoke: One pack per day for 39 years, now down to 5 cigarettes/day Alcohol: Once a week Drugs: Negative Review of systems: Constitutional: Night sweats and occasional hot flashes HEENT: Negative Breasts: As per HPI Cardiovascular: Negative Respiratory: Nicotine dependence; cough GI: Negative : Uterine ablation Musculoskeletal: Negative Integument: Negative Endocrine: Weight gain of 10 pounds during shut down Neurologic: Negative Psychiatric: Negative Objective - Vital Signs Vital signs: Vital Signs Temp 97.7 F 11/15/20 08:50 Pulse 96 11/15/20 08:50 Resp 18 11/15/20 08:50 BP 134/80 11/15/20 08:50 Pulse Ox 98 11/15/20 08:50 Intake & Output 11/14/20 11/15/20 11/15/20 18:59 06:59 18:59 Weight 74.389 kg - Exam BMI 26.5 - Constitutional General appearance: Present: average body habitus - EENT Eyes: Present: EOMI ENT: Present: hearing grossly normal - Neck Neck: Present: normal ROM - Respiratory Respiratory: bilateral: CTA - Cardiovascular Rhythm: regular Heart sounds: normal: S1, S2 - Integumentary Integumentary: Present: normal turgor - Musculoskeletal Musculoskeletal: Present: gait normal - Psychiatric Psychiatric: Present: A&O x's 3, appropriate affect - Additional findings Additional findings: Breast exam: Assessment and Plan Assessment: Impression: 1. Radiographic ultrasound abnormality left breast near 6 o'clock position ultrasound core biopsy considered discordant as per Dr. Martinez 2. Patient has stopped exemestane 3. Patient does have full range of motion both shoulders Plan: 1. Patient is going to have a repeat ultrasound core biopsy of the left breast lesion at 6:00 depending on results of this would depend on whether patient is going to have excision of this lesion 2. Follow-up after ultrasound core biopsy Cc: Dr. Loja encounter 20 minutes time spent in reviewing medical records, examination and counselling
== END | disposition home or self-care (01) ==
LOC: WWCWWP 08:40
PROVIDERS: ATTEND Surgery
DX: Z53.9 Procedure and treatment not carried out, unspecified reason (principal)

== ENCOUNTER → 2020-11-20 | Day surgery (SDC) | payer OTHER ==
[2020-11-20 09:53] VITALS: RESP 16
[2020-11-20 11:17] VITALS: BP 132/88; PULSE 80; TEMP 98.6
--- NOTE | 2020-11-20 11:55 | MM ---
EXAMINATION TYPE: US biopsy breast VAD LT DATE OF EXAM: 11/20/2020 CLINICAL HISTORY: Z85.3 HX OF BREAST CA. TECHNIQUE: Ultrasound guided vaccuum assisted core biopsy of right breast. COMPARISON: NONE FINDINGS: Prior breast biopsy images are reviewed. Prior ultrasound images of the left breast are rev iewed. Pathology report is reviewed. At the request of the referring surgeon, repeat biopsy lesion pe rformed. The ultrasound guided core biopsy procedure was explained to the patient. The risks, benefits, alter natives were discussed. An informed consent was then obtained. Timeout was performed. The patient was placed in supine positioning for imaging and for the procedure. The overlying skin w as prepped with betadine and sterilely draped in usual sterile fashion. Lidocaine 1% was used as ane sthetic into the skin and deeper breast tissue up to area of concern in the breast. A small skin anette k was made with surgical scalpel. Under ultrasound guidance, a 12-gauge vacuum assisted biopsy device was used to obtain 7 core samples . Sampling was performed with 3 cores through the distal margin, 2 cores within the middle portion of the lesion, and 2 cores within the proximal margin. A biopsy clip was left in lesion. Ribbon clip w as placed Good hemostasis was obtained with direct pressure. Discharge instructions were discussed with the taran hernandez. The patient will follow up with the referring physician for results. Postprocedure mammogram: The patient was transferred to mammography for physician ordered post proced ure mammogram for clip placement verification. The clip is in the expected region of the biopsy. The patient tolerated the procedure well without any immediate complication. The patient was dischar [facility] to home in stable condition. IMPRESSION: 1. Successful ultrasound guided biopsy left breast 6:00 lesion.
--- NOTE | 2020-11-20 11:55 | USB ---
EXAMINATION TYPE: US biopsy breast VAD LT DATE OF EXAM: 11/20/2020 CLINICAL HISTORY: Z85.3 HX OF BREAST CA. TECHNIQUE: Ultrasound guided vaccuum assisted core biopsy of right breast. COMPARISON: NONE FINDINGS: Prior breast biopsy images are reviewed. Prior ultrasound images of the left breast are reviewed. Pathology report is reviewed. At the request of the referring surgeon, repeat biopsy lesion performed. The ultrasound guided core biopsy procedure was explained to the patient. The risks, benefits, alternatives were discussed. An informed consent was then obtained. Timeout was performed. The patient was placed in supine positioning for imaging and for the procedure. The overlying skin was prepped with betadine and sterilely draped in usual sterile fashion. Lidocaine 1% was used as anesthetic into the skin and deeper breast tissue up to area of concern in the breast. A small skin trell was made with surgical scalpel. Under ultrasound guidance, a 12-gauge vacuum assisted biopsy device was used to obtain 7 core samples. Sampling was performed with 3 cores through the distal margin, 2 cores within the middle portion of the lesion, and 2 cores within the proximal margin. A biopsy clip was left in lesion. Ribbon clip was placed Good hemostasis was obtained with direct pressure. Discharge instructions were discussed with the patient. The patient will follow up with the referring physician for results. Postprocedure mammogram: The patient was transferred to mammography for physician ordered post procedure mammogram for clip placement verification. The clip is in the expected region of the biopsy. The patient tolerated the procedure well without any immediate complication. The patient was discharged to home in stable condition. IMPRESSION: 1. Successful ultrasound guided biopsy left breast 6:00 lesion. Pathology Results: Benign LEFT BREAST, SIX O'CLOCK, CORE BIOPSY: Benign breast with fibrosis, focal sclerosing adenosis with rare minute microcalcification and lymphohistiocytic chronic inflammation (see note). Scar with favored lobular radiation-induced change present, if patient has history of radiation therapy. Recommendation Follow up ultrasound of the left breast in 6 months. Surgical consult can be considered if any progressively enlarging palpable abnormality. MTDD
== END ==
LOC: RADUSWWP 09:25
PROVIDERS: ATTEND Surgery
DX: N60.32 Fibrosclerosis of left breast (principal); N60.22 Fibroadenosis of left breast; L90.5 Scar conditions and fibrosis of skin; Z92.3 Personal history of irradiation
CPT/HCPCS: 88305; 88342; 88341; 77065; 19083; A4648; J2001

== ENCOUNTER → 2021-05-21 | Outpatient (CLI) | payer OTHER ==
--- NOTE | 2021-05-27 11:22 | USB ---
Reason for exam: follow-up at short interval from prior study. History: Patient is postmenopausal and has history of breast cancer at age 53. Family history of breast cancer in sister at age 69, breast cancer in maternal grandmother, and breast cancer in maternal aunt at age 60. Benign US biopsy breast VAD LT of the left breast, November 20, 2020. Benign US biopsy breast VAD LT of the left breast, November 07, 2020. US discontinued breast bx LT of the left breast, December 18, 2019. US discontinued breast core LT of the left breast, November 09, 2019. Malignant MG pre op needle loc LT of the left breast, March 14, 2019. Lumpectomy of the left breast, March 14, 2019. Malignant US biopsy breast VAD LT of the left breast, January 30, 2019. Taking antineoplastic for 1 year beginning at age 53. Physical Findings: Nurse did not find any significant physical abnormalities on exam. US Breast Limited LT Left limited breast ultrasound including focal area of concern, retroareolar and axilla demonstrates a 2.0 x 1.3 x 0.9cm lesion at 6 o'clock, tissue samples twice, near previously lumpectomy. These results were verbally communicated with the patient and result sheet given to the patient on 05/21/21. ASSESSMENT: Benign, BI-RAD 2 RECOMMENDATION: Follow-up diagnostic mammogram of both breasts in 6 months. Manage on a clinical basis with regard to left axilla. Back on schedule for November 2021.
== END | disposition home or self-care (01) ==
LOC: RADUSWWP 14:53
PROVIDERS: ATTEND Surgery
DX: N64.89 Other specified disorders of breast (principal); Z78.0 Asymptomatic menopausal state; Z85.3 Personal history of malignant neoplasm of breast; Z80.3 Family history of malignant neoplasm of breast

== ENCOUNTER → 2021-06-13 | Outpatient (CLI) | payer OTHER ==
[2021-06-13 12:31] VITALS: BP 129/87; PULSE 85; RESP 16; TEMP 98
--- NOTE | 2021-06-13 13:08 | P.PN ---
Subjective Progress Note Date: 06/13/21 Principal diagnosis: left breast stage IA invasive ductal cancer Christy is a 55-year-old white female who is status post left breast ultrasound- guided core biopsy on . Pathology revealed an infiltrating moderately differentiated ductal adenocarcinoma. This was a T1N0M0 grade 2 ER positive [place] positive HER-2/марина negative she underwent genetic testing which was negative. On 03-29-19 she underwent a partial mastectomy and SNB. All margins were negative, nodes negative. Lesion 1.5 X 1.3 X0.8 cm. she subsequently underwent ultrasound core biopsy of the area of lumpectomy most recently on 2320. The pathology results were benign. At this time she comes for follow- up. The patient did not have any chemotherapy. She was started on Aromasin but she stopped this. She did complete a course of radiation therapy. She underwent an ultrasound of the left breast and 8420 this revealed were felt to be benign findings. This was benign BIRADS 2. Follow-up diagnostic mammogram of both breast in 6 months were recommended. The patient was noted to have a 2 x 1.3 cm lesion in the axilla. She has not noted any lumps masses or nodules of concern in either breast or under either arm. She does complain of some pain emanating under her left arm shooting into the breast and then down the lateral chest wall. This happens several times a week. It is sharp in nature. She does not know any action which precipitates it. She had the COVID vaccine about 4 months ago. Family history: Maternal grandmother: Breast cancer Paternal aunt: Breast sister: Breast cancer at 70 Maternal grandfather: Bladder sister: Cervical cancer Maternal aunt: Cancer uncertain of the type Hormonal history: Menarche: 11 3 para 3 first toe bone at 18, breast fed: Yes Menopaus:Stopped she had an ablation at 43 she still has hot flashes BCP: 3 years Hormones: Negative Surgical history: 1. Tubal ligation 2. Bladder suspension 3. left lumpectomy and SNB Medical history: Negative Social history: Smoke: One pack per day for 39 years Alcohol: Once or twice a week Drugs: Negative - Constitutional Constitutional: Reports sweats, Denies chills, Denies fever - EENT Eyes: denies blurred vision, denies pain Ears: deny: decreased hearing, tinnitus Ears, nose, mouth and throat: Denies headache, Denies sore throat - Breasts Breasts: bilateral: as per HPI - Cardiovascular Cardiovascular: Denies chest pain, Denies shortness of breath - Respiratory Comment: nicotine dependance Respiratory: Reports cough - Gastrointestinal Gastrointestinal: Denies abdominal pain, Denies diarrhea, Denies nausea, Denies vomiting - Genitourinary (Female) Genitourinary: Denies dysuria, Denies hematuria - Menstruation Menstruation: Reports postmenopausal - Musculoskeletal Musculoskeletal: Denies myalgias - Integumentary Integumentary: Denies pruritus, Denies rash - Neurological Neurological: Denies numbness, Denies weakness - Psychiatric Psychiatric: Denies anxiety, Denies depression - Endocrine Endocrine: Reports fatigue, Denies weight change - Hematologic/Lymphatic Comment: none - Allergic/Immunologic Allergic/Immunologic: Reports seasonal allergies Objective - Vital Signs Vital signs: Vital Signs Temp 98.0 F 06/13/21 12:27 Pulse 85 06/13/21 12:27 Resp 16 06/13/21 12:27 BP 129/87 06/13/21 12:27 Pulse Ox 97 06/13/21 12:27 Intake & Output 06/12/21 06/13/21 06/13/21 18:59 06:59 18:59 Weight 72.575 kg - Constitutional General appearance: Present: cooperative - EENT Eyes: Present: EOMI ENT: Present: hearing grossly normal - Neck Neck: Present: normal ROM - Respiratory Respiratory: bilateral: CTA - Cardiovascular Rhythm: regular Heart sounds: normal: S1, S2 - Gastrointestinal General gastrointestinal: Present: soft - Integumentary Integumentary: Present: normal turgor - Musculoskeletal Musculoskeletal: Present: gait normal - Psychiatric Psychiatric: Present: A&O x's 3, appropriate affect, intact judgment & insight - Additional findings Additional findings: Breast: BRA: 36C inspection: post op changes left breast. Palpation: Right breast: Multiple positional exam fibrocystic changes Right axilla: No adenopathy of concern Left breast: Multi-positional exam postop and fibrocystic changes no known dominant masses or nodules of concern Left axilla: No adenopathy of concern Assessment and Plan Assessment: Impression: 1. Distortion of the left breast related to prior surgery/radiation therapy 2. Stage IA left breast cancer no evidence of recurrence 3. Pain emanating from left axilla into the left breast intermittent in nature Plan: 1. Patient has opted to stop her aromatase inhibitor 2. Recommend physical therapy related to pain under her left arm 3. Nothing at this time which would warrant interventional biopsy 4. Bilateral mammogram in 6 months. Physician exam at that time CC: Dr. Loja
== END ==
LOC: WWCWWP 11:54
PROVIDERS: ATTEND Surgery
DX: N64.89 Other specified disorders of breast (principal); F17.210 Nicotine dependence, cigarettes, uncomplicated; Z98.890 Other specified postprocedural states; Z85.3 Personal history of malignant neoplasm of breast; Z79.811 Long term (current) use of aromatase inhibitors; Z92.3 Personal history of irradiation

== ENCOUNTER → 2021-12-03 | Outpatient (CLI) | payer OTHER ==
--- NOTE | 2021-12-03 14:27 | MM ---
Reason for exam: additional evaluation requested from prior study. Last mammogram was performed 1 year ago. History: Patient is postmenopausal and has history of breast cancer at age 53. Family history of breast cancer in sister at age 69, breast cancer in maternal grandmother, and breast cancer in maternal aunt at age 60. Benign US biopsy breast VAD LT of the left breast, November 20, 2020. Benign US biopsy breast VAD LT of the left breast, November 07, 2020. US discontinued breast bx LT of the left breast, December 18, 2019. US discontinued breast core LT of the left breast, November 09, 2019. Malignant MG pre op needle loc LT of the left breast, March 14, 2019. Lumpectomy of the left breast, March 14, 2019. Malignant US biopsy breast VAD LT of the left breast, January 30, 2019. Taking antineoplastic for 1 year beginning at age 53. Physical Findings: Nurse did not find any significant physical abnormalities on exam. MG Diagnostic Mammo w CAD [facility] Bilateral CC and MLO view(s) were taken. Prior study comparison: November 20, 2020, left breast MG diagnostic mammo LT wo CAD. November 07, 2020, left breast MG diagnostic mammo LT wo CAD. The breast tissue is heterogeneously dense. This may lower the sensitivity of mammography. Stable post operative distortion left breast. No significant new findings when compared with previous films. These results were verbally communicated with the patient and result sheet given to the patient on 12/03/21. ASSESSMENT: Benign, BI-RAD 2 RECOMMENDATION: Follow-up diagnostic mammogram of both breasts in 1 year.
== END | disposition home or self-care (01) ==
LOC: RADMAMWWP 12:53
PROVIDERS: ATTEND Surgery
DX: R92.8 Other abnormal and inconclusive findings on diagnostic imaging of breast (principal); Z78.0 Asymptomatic menopausal state; Z85.3 Personal history of malignant neoplasm of breast; Z80.3 Family history of malignant neoplasm of breast
CPT/HCPCS: 77066

== ENCOUNTER → 2022-02-12 | Outpatient (CLI) | payer OTHER ==
[2022-02-12 14:49] VITALS: BP 154/87; PULSE 107; RESP 17; TEMP 97.8
--- NOTE | 2022-02-12 15:28 | P.PN ---
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 Pathology revealed an infiltrating moderately differentiated ductal adenocarcinoma. This was a T1N0M0 grade 2 ER positive [place] positive HER-2/марина negative she underwent genetic testing which was negative. On 03-29-19 she underwent a partial mastectomy and SNB. All margins were negative, nodes negative. Lesion 1.5 X 1.3 X0.8 cm. she subsequently underwent ultrasound core biopsy of the area of lumpectomy on 2320. The pathology results were benign. The patient did not have any chemotherapy. She was started on Aromasin but she stopped this. She did complete a course of radiation therapy. She underwent an ultrasound of the left breast and 8420 this revealed were felt to be benign findings. This was benign BIRADS 2. Follow-up diagnostic mammogram of both breast in 6 months were recommended. The patient was noted to have a 2 x 1.3 cm lesion in the axilla. This was reviewed with DR. Thompson and not felt to be worrisome. She has not noted any lumps masses or nodules of concern in either breast or under either arm. She had a bilateral mammogram and which was benign BIRADS 2, this was reviewed with Dr. Rudolph She was complaining of some pain emanating under her left arm shooting into the breast and then down the lateral chest wall. This has since resolved. nicotine: 3 cigarettes/day caffiene: 1 cup coffee/day hormones: none BCP: 3 years Family history: Maternal grandmother: Breast cancer Paternal aunt: Breast sister: Breast cancer at 70 Maternal grandfather: Bladder sister: Cervical cancer Maternal aunt: Cancer uncertain of the type Hormonal history: Menarche: 11 3 para 3 first toe bone at 18, breast fed: Yes Menopaus:Stopped she had an ablation at 43 she still has hot flashes BCP: 3 years Hormones: Negative Surgical history: 1. Tubal ligation 2. Bladder suspension 3. left breast lumpectomy and SNB 2018 Medical history: Negative Social history: Smoke: One pack per day for 39 years Alcohol: Once or twice a week Drugs: Negative - Constitutional Constitutional: Reports sweats, Denies chills, Denies fever - EENT Eyes: denies blurred vision, denies pain Ears: deny: decreased hearing, tinnitus Ears, nose, mouth and throat: Denies headache, Denies sore throat - Breasts Breasts: bilateral: as per HPI - Cardiovascular Cardiovascular: Denies chest pain, Denies shortness of breath - Respiratory Comment: nicotine dependance Respiratory: Reports cough - Gastrointestinal Gastrointestinal: Denies abdominal pain, Denies diarrhea, Denies nausea, Denies vomiting - Genitourinary (Female) Genitourinary: Denies dysuria, Denies hematuria - Menstruation Menstruation: Reports postmenopausal - Musculoskeletal Musculoskeletal: Denies myalgias - Integumentary Integumentary: Denies pruritus, Denies rash - Neurological Neurological: Denies numbness, Denies weakness - Psychiatric Psychiatric: Denies anxiety, Denies depression - Endocrine Endocrine: Reports fatigue, Denies weight change - Hematologic/Lymphatic Comment: none - Allergic/Immunologic Allergic/Immunologic: Reports seasonal allergies Objective - Vital Signs Vital signs: Vital Signs Temp 97.8 F 02/12/22 14:47 Pulse 107 H 02/12/22 14:47 Resp 17 02/12/22 14:47 BP 154/87 02/12/22 14:47 Pulse Ox 97 02/12/22 14:47 Intake & Output 02/11/22 02/12/22 02/12/22 18:59 06:59 18:59 Weight 74.843 kg - Exam BMI: 26.6 - Constitutional General appearance: Present: cooperative - EENT Eyes: Present: EOMI ENT: Present: hearing grossly normal - Neck Neck: Present: normal ROM - Respiratory Respiratory: bilateral: CTA - Cardiovascular Rhythm: regular Heart sounds: normal: S1, S2 - Gastrointestinal General gastrointestinal: Present: soft - Integumentary Integumentary: Present: normal turgor - Musculoskeletal Musculoskeletal: Present: gait normal - Psychiatric Psychiatric: Present: A&O x's 3, appropriate affect, intact judgment & insight - Additional findings Additional findings: Breast Exam: BRA: 36B inspection: post op and radiation changes left breast palpation: Breast: Multi-positional exam fibrocystic changes no dominant masses or nodules of concern Right axilla: No adenopathy of concern Left breast: Post op and radiation changes, no evidence of recurrent cancer No dominant masses or nodules of concern Left axilla: No adenopathy of concern Assessment and Plan Assessment: Impression: No evidence of recurrent stage IA invasive invasive ductal carcinoma left breast Bilateral mammogram benign BIRADS 2 done on Patient is attempting to stop smoking and decreasing caffeine intake Plan: 1. Bilateral mammogram in November 2022 2. Follow-up. 6 months for physician exam 3. Patient encouraged to stop smoking CC: Dr. Loja
== END ==
LOC: WWCWWP 14:40
PROVIDERS: ATTEND Surgery
DX: Z08 Encounter for follow-up examination after completed treatment for malignant neoplasm (principal); Z85.3 Personal history of malignant neoplasm of breast; F17.210 Nicotine dependence, cigarettes, uncomplicated

== ENCOUNTER → 2023-05-20 | Outpatient (CLI) | payer OTHER ==
[2023-05-20 15:55] VITALS: BP 133/75; PULSE 101; RESP 17; TEMP 97.9
--- NOTE | 2023-05-20 15:58 | P.PN ---
Subjective Progress Note Date: 05/20/23 left breast stage IA invasive ductal cancer 2018 Christy is a 57-year-old white female who is status post left breast ultrasound- guided core biopsy on . Pathology revealed an infiltrating moderately differentiated ductal adenocarcinoma. This was a T1N0M0 grade 2 ER positive [place] positive HER-2/марина negative she underwent genetic testing which was negative. On 03-29-19 she underwent a partial mastectomy and SNB. All margins were negative, nodes negative. Lesion 1.5 X 1.3 X0.8 cm. she subsequently underwent ultrasound core biopsy of the area of lumpectomy on 2320. The pathology results were benign. The patient did not have any chemotherapy. She was started on Aromasin but she stopped this. She did complete a course of radiation therapy. She had a bilateral mammogram and which was benign BIRADS 2. She was complaining of some pain emanating under her left arm shooting into the breast and then down the lateral chest wall. This has since resolved. She is not complaining of any new lumps masses or nodules of concern in either breast. nicotine: 3 cigarettes/day; she is now smoking 10 cigarettes/day caffeine: 1 cup coffee/day hormones: none BCP: 3 years Family history: Maternal grandmother: Breast cancer Paternal aunt: Breast sister: Breast cancer at 70 Maternal grandfather: Bladder sister: Cervical cancer Maternal aunt: Cancer uncertain of the type Hormonal history: Menarche: 11 3 para 3 first toe bone at 18, breast fed: Yes Menopaus:Stopped she had an ablation at 43 she still has hot flashes BCP: 3 years Hormones: Negative Surgical history: 1. Tubal ligation 2. Bladder suspension 3. left breast lumpectomy and SNB 2018 Medical history: Negative Social history: Smoke: One pack per day for 39 years Alcohol: Once or twice a week Drugs: Negative - Constitutional Constitutional: Reports sweats, Denies chills, Denies fever - EENT Eyes: denies blurred vision, denies pain Ears: deny: decreased hearing, tinnitus Ears, nose, mouth and throat: Denies headache, Denies sore throat - Breasts Breasts: bilateral: as per HPI - Cardiovascular Cardiovascular: Denies chest pain, Denies shortness of breath - Respiratory Comment: nicotine dependance Respiratory: Reports cough - Gastrointestinal Gastrointestinal: Denies abdominal pain, Denies diarrhea, Denies nausea, Denies vomiting - Genitourinary (Female) Genitourinary: Denies dysuria, Denies hematuria - Menstruation Menstruation: Reports postmenopausal - Musculoskeletal Musculoskeletal: Denies myalgias - Integumentary Integumentary: Denies pruritus, Denies rash - Neurological Neurological: Denies numbness, Denies weakness - Psychiatric Psychiatric: Denies anxiety, Denies depression - Endocrine Endocrine: Reports fatigue, Denies weight change - Hematologic/Lymphatic Comment: none - Allergic/Immunologic Allergic/Immunologic: Reports seasonal allergies Objective - Constitutional General appearance: Present: cooperative - EENT Eyes: Present: EOMI ENT: Present: hearing grossly normal - Neck Neck: Present: normal ROM - Respiratory Respiratory: bilateral: CTA - Cardiovascular Rhythm: regular Heart sounds: normal: S1, S2 - Gastrointestinal General gastrointestinal: Present: soft - Integumentary Integumentary: Present: normal turgor - Musculoskeletal Musculoskeletal: Present: gait normal - Psychiatric Psychiatric: Present: A&O x's 3, appropriate affect, intact judgment & insight - Additional findings Additional findings: Breast Exam: BRA: 36B inspection: post op and radiation changes left breast palpation: Breast: Multi-positional exam fibrocystic changes no dominant masses or nodules of concern Right axilla: No adenopathy of concern Left breast: Post op and radiation changes, no evidence of recurrent cancer No dominant masses or nodules of concern Left axilla: No adenopathy of concern Assessment and Plan Assessment: Impression: No evidence of recurrent stage IA invasive invasive ductal carcinoma left breast Bilateral mammogram benign BIRADS 2 done on Patient is attempting to stop smoking and decreasing caffeine intake; has recently increased cigarettes to 10/day Plan: 1. Bilateral mammogram in November 2023 2. Follow-up. 6 months for physician exam 3. Patient encouraged to stop smoking CC: Dr. Loja
== END ==
LOC: WWCWWP 15:39
PROVIDERS: ATTEND Surgery
DX: C50.912 Malignant neoplasm of unspecified site of left female breast (principal); F17.210 Nicotine dependence, cigarettes, uncomplicated; Z79.811 Long term (current) use of aromatase inhibitors; Z80.3 Family history of malignant neoplasm of breast

== ENCOUNTER → 2023-12-08 | Outpatient (CLI) | payer OTHER ==
--- NOTE | 2023-12-08 09:52 | MM ---
Reason for Exam: Hx of breast cancer, conservation therapy. Last screening mammogram was performed 12 month(s) ago. Patient History: Menarche at age 12. First Full-Term at age 17. Postmenopausal. Patient has history of breast feeding. Breast cancer, left, age 53. Previous chest radiation therapy at age 53. 03/14/2019, Lumpectomy on the Left side. 11/20/2020, Benign Core Biopsy on the left side. 11/07/2020, Benign Core Biopsy on the left side. 03/14/2019, Malignant Core Biopsy on the left side. 01/30/2019, Malignant Core Biopsy on the left side. 12/18/2019, US discontinued breast bx LT on the left side. 11/09/2019, US discontinued breast core LT on the left side. Maternal grandmother had breast cancer. Maternal aunt had breast cancer, age 60. Sister had breast cancer, age 69. Tissue Density: There are scattered fibroglandular densities. Findings: Analyzed By CAD. Postsurgical and posttreatment changes left breast. The patient has had a 40 pound weight loss since prior exam and we are unable to bring in additional breast tissue which includes the surgical site. Microclip left breast from prior biopsy. No significant change otherwise seen. Overall Assessment: Benign, BI-RAD 2 Management: Screening Mammogram of both breasts in 1 year. . Results were given to the patient verbally at the time of exam. Patient should continue monthly self-breast exams. A clinical breast exam by your physician is recommended on an annual basis. This exam should not preclude additional follow-up of suspicious palpable abnormalities. Electronically signed and approved by: Jazz Gu M.D. Radiologist
== END | disposition home or self-care (01) ==
LOC: RADMAMWWP 08:47
PROVIDERS: ATTEND Surgery
DX: R92.323 Mammographic fibroglandular density, bilateral breasts (principal); Z85.3 Personal history of malignant neoplasm of breast; Z80.3 Family history of malignant neoplasm of breast; Z78.0 Asymptomatic menopausal state; Z98.890 Other specified postprocedural states
CPT/HCPCS: 77066; G0279; 77062

== ENCOUNTER → 2024-02-23 | Outpatient (CLI) | payer OTHER ==
--- NOTE | 2024-02-23 14:58 | XR ---
EXAMINATION TYPE: XR foot complete LT DATE OF EXAM: 02/23/2024 1:13 PM CLINICAL INDICATION:Female, 58 years old with history of R52 PAIN; [facility] COMPARISON: TECHNIQUE: XR foot complete LT examined in the AP, oblique, and lateral projections. FINDINGS: No evidence of any acute osseous pathology. No evidence of soft tissue swelling. Joints are preserve d. Enthesophytes are seen at the insertion of the Achilles tendon on the os calcis and at the origi n of the plantar aponeurosis IMPRESSION: No evidence of acute fracture.
== END | disposition home or self-care (01) ==
LOC: RADXRMAIN 12:54
PROVIDERS: ATTEND Family Medicine
DX: M79.672 Pain in left foot (principal)

== ENCOUNTER → 2025-01-23 | Outpatient (CLI) | payer OTHER ==
--- NOTE | 2025-01-23 13:47 | MM ---
Reason for Exam: Screening (asymptomatic). Last mammogram was performed 1 year(s) and 2 month(s) ago. Patient History: Menarche at age 12. First Full-Term at age 17. Postmenopausal. Patient has history of breast feeding. Breast cancer, left, age 53. Previous chest radiation therapy at age 53. 03/14/2019, Lumpectomy on the Left side. 11/20/2020, Benign Core Biopsy on the left side. 11/07/2020, Benign Core Biopsy on the left side. 03/14/2019, Malignant Core Biopsy on the left side. 01/30/2019, Malignant Core Biopsy on the left side. 12/18/2019, US discontinued breast bx LT on the left side. 11/09/2019, US discontinued breast core LT on the left side. Maternal grandmother had breast cancer. Maternal aunt had breast cancer, age 60. Sister had breast cancer, age 69. Prior Study Comparison: 12/03/2021 Bilateral Diagnostic Mammogram, [facility]. 12/07/2022 Bilateral MG diagnostic mammo w CAD [facility], [facility]. 12/08/2023 Bilateral MG 3D diag mammo w/cad [facility], [facility]. Tissue Density: There are scattered areas of fibroglandular density. Findings: Analyzed By CAD. Postsurgical and posttreatment changes left breast. There is no suspicious group of microcalcifications or new suspicious mass in either breast. Overall Assessment: Benign, BI-RAD 2 Management: Screening Mammogram of both breasts in 1 year. Patient should continue monthly self-breast exams. A clinical breast exam by your physician is recommended on an annual basis. This exam should not preclude additional follow-up of suspicious palpable abnormalities. [facility], , 01/23/2025 1:44 PM. Electronically signed and approved by: Jazz Gu M.D. Radiologist
== END | disposition home or self-care (01) ==
LOC: RADMAMWWP 09:05
PROVIDERS: ATTEND Surgery
DX: Z12.31 Encounter for screening mammogram for malignant neoplasm of breast (principal); R92.323 Mammographic fibroglandular density, bilateral breasts; Z78.0 Asymptomatic menopausal state; Z85.3 Personal history of malignant neoplasm of breast; Z80.3 Family history of malignant neoplasm of breast
CPT/HCPCS: 77063; 77067

== ENCOUNTER → 2025-05-07 | Outpatient (CLI) | payer OTHER ==
--- NOTE | 2025-05-07 10:57 | USB ---
Reason for Exam: Clinical finding. Patient History: Menarche at age 12. First Full-Term at age 17. Postmenopausal. Patient has history of breast feeding. Breast cancer, left, age 53. Previous chest radiation therapy at age 53. 03/14/2019, Lumpectomy on the Left side. 11/20/2020, Benign Core Biopsy on the left side. 11/07/2020, Benign Core Biopsy on the left side. 03/14/2019, Malignant Core Biopsy on the left side. 01/30/2019, Malignant Core Biopsy on the left side. 12/18/2019, US discontinued breast bx LT on the left side. 11/09/2019, US discontinued breast core LT on the left side. Maternal grandmother had breast cancer. Maternal aunt had breast cancer, age 60. Sister had breast cancer, age 69. Technique: Method: Targeted. Prior Study Comparison: 12/07/2022 Bilateral MG diagnostic mammo w CAD [facility], [facility]. 12/08/2023 Bilateral MG 3D diag mammo w/cad [facility]. 01/23/2025 Bilateral MG 3D screening mammo w/cad, [facility]. Findings: The area of palpable concern of the left breast, the lower inner quadrant of the left breast and the retroareolar of the left breast were scanned. Technique utilized:US breast limited LT Image; Ultrasound imaging of: Lower inner quadrant, retroareolar region. No evidence for organizing fluid collection or mass. No finding to correlate with palpable abnormality. Prior lumpectomy site at its 3:00 6 cm from the nipple. Overall Assessment: Benign, BI-RAD 2 Management: Screening Mammogram of both breasts in 1 year. A clinical breast exam by your physician is recommended on an annual basis and results should be correlated with mammographic findings. This exam should not preclude additional follow-up of suspicious palpable abnormalities. Results were given to the patient verbally at the time of exam. [facility], , 05/07/2025 10:55 AM. Electronically signed and approved by: Agapito Grimes DO
== END | disposition home or self-care (01) ==
LOC: RADUSWWP 10:23
PROVIDERS: ATTEND Surgery
DX: N63.20 Unspecified lump in the left breast, unspecified quadrant (principal); Z78.0 Asymptomatic menopausal state; Z85.3 Personal history of malignant neoplasm of breast; Z80.3 Family history of malignant neoplasm of breast